=== PATIENT | female | born 1955 | race Caucasian/White ===

== ENCOUNTER 2023-07-27 16:14 | Emergency (ER) | payer MEDICARE, SELFPAY ==
[2023-07-27 16:21] VITALS: BP 135/80; PULSE 70; TEMP 36.7; O2SAT 96; BMI 25.1
--- NOTE | 2023-07-27 16:25 | XR_ITS ---
The [address] [address] Patient Name: BRIDGER GUEVARA MRN: [id number] date: 1955 Sex: F Assigned Patient Location: ED.MAIN Current Patient Location: ED.MAIN Accession/Order Number: [id number] Exam Date: 07/27/2023 16:55 Report Date: 07/27/2023 17:22 At the request of: NINA FROST Procedure: XR wrist LT min 3V EXAM: XR wrist LT min 3V HISTORY: fall, pain COMPARISON: None. TECHNIQUE: 3 views of the left wrist. FINDINGS: Bones: No acute fracture or aggressive appearing bony lesion. Joints: Normal alignment. No significant osteoarthritic change. Soft tissues: Unremarkable. XR/XR wrist LT min 3V IMPRESSION: No evidence of fracture. Electronically authenticated by: IVANIA HERRERA Date: 07/27/2023 17:22
--- NOTE | 2023-07-27 16:25 | ED.UPPEXIN1 ---
HPI HPI - Extremity Injury (Upper) General Chief Complaint: Extremity Injury, Upper Stated Complaint: Fall Upper Injury Time Seen by Provider: 07/27/23 16:17 Source: patient Mode of arrival: walk-in Limitations: no limitations History of Present Illness HPI narrative: 68-year-old female presents for left wrist pain. She fell yesterday. She sustained no other significant injury. She did not hit her head. She points to the wrist to indicate area of pain. Her elbow and fingers do not hurt. The pain is moderate and worse when she moves it and it is a bit swollen so she came in to get checked. Related Data Allergies Allergy/AdvReac Type Severity Reaction Status Date / Time omeprazole [From Prilosec] Allergy Mild nausea Verified 07/27/23 16:26 iv constrast Allergy Severe Anaphylaxis Uncoded 07/27/23 16:26 Opioid HPI Opioid Management Most Recent Pain and Opioid Data: No Data to Display Review of Systems ROS Narrative A ten point review of systems is negative except as noted above. Exam Narrative Exam Narrative: Nurses note and vital signs reviewed and patient is not hypoxic. General: The patient appears well and in no apparent distress. Patient is resting comfortably on cart. Skin: Warm, dry, no pallor noted. There is no rash noted. Head: Normocephalic, atraumatic Eye: Normal conjunctiva, no drainage Ears, Nose, Mouth, and Throat: oral mucosa is moist. Nares patent. Cardiovascular: Regular Rate and Rhythm Respiratory: Patient is in no distress, no accessory muscle use Back: non-tender GI: Soft and nontender Musculoskeletal: The left wrist is mildly swollen. Skin intact. Fingers have full range of motion in the left elbow is nontender. Neurological: A&O, normal speech Psychiatric: Cooperative Constitutional Vital Signs, click to edit/add: Last Vital Signs Temp 98.0 F 07/27/23 16:21 Pulse 70 07/27/23 16:21 Resp 18 07/27/23 16:21 BP 135/80 07/27/23 16:21 Pulse Ox 96 07/27/23 16:21 O2 Del Method Room Air 07/27/23 16:21 Course Vital Signs Vital signs: Vital Signs Temperature 98.0 F 07/27/23 16:21 Pulse Rate 70 07/27/23 16:21 Respiratory Rate 18 07/27/23 16:21 Blood Pressure 135/80 07/27/23 16:21 Pulse Oximetry 96 07/27/23 16:21 Oxygen Delivery Method Room Air 07/27/23 16:21 Temperature 98.0 F 07/27/23 16:21 Pulse Rate 70 07/27/23 16:21 Respiratory Rate 18 07/27/23 16:21 Blood Pressure 135/80 07/27/23 16:21 Pulse Oximetry 96 07/27/23 16:21 Oxygen Delivery Method Room Air 07/27/23 16:21 MDM - Extremity Injury (Upper) MDM Narrative Medical decision making narrative: X-rays show no acute findings. She has a splint that she will continue to use and was recommended ice and ibuprofen. Treatment diagnosis and follow-up were discussed with the patient. Differential Diagnosis Differential diagnosis: Likely sprain and strain of wrist and fracture of wrist Imaging Data Wrist x-ray: Radiologist's impression: ITS Impressions Wrist X-Ray 07/27/23 16:25 IMPRESSION: No evidence of fracture. Electronically authenticated by: IVANIA HERRERA Date: 07/27/2023 17:22 Discharge Plan Discharge Stand Alone Forms: Portal Instructions Chief Complaint: Extremity Injury, Upper Clinical Impression: Left wrist sprain Patient Disposition: Home, Self-Care Time of Disposition Decision: 17:35 Condition: Good Mode of Transportation: Private Vehicle Print Language: [place] Instructions: Wrist Sprain (ED) Referrals: DEMARCUS TROTTER [Primary Care Provider] - 1 week
== END 2023-07-27 17:46 | disposition home or self-care (01) ==
PROVIDERS: Emergency Provider Emergency Medicine; PCP Family Medicine
DX: S63.502A Unspecified sprain of left wrist, initial encounter (principal); W19.XXXA Unspecified fall, initial encounter
CPT/HCPCS: 73110; 99283

== ENCOUNTER 2023-12-17 12:26 | Emergency (ER) | payer MEDICARE, SELFPAY ==
[2023-12-17 12:29] VITALS: BP 117/72; PULSE 63; TEMP 36.5; O2SAT 98; BMI 23.4
--- OUTSIDE RECORDS SUMMARY | 2023-12-17 12:32 | XMS_ITS | CCD ---
Author Organization [facility] Inform ion Partnership [facility] Care Team Providers Care Textile Conversion Manager Name Role Phone Kamila Trotter MD Primary Care Provider FATOU MARRERO Referring Unavailable FATOU MARRERO Attending Unavailable KAMILA TROTTER Referring Unavailable SHA DE LEON Attending Unavailable KAMILA TROTTER Referring Unavailable KAMILA TROTTER Attending Unavailable FATOU MARRERO Attending Unavailable KAMILA TROTTER Referring Unavailable KAMILA TROTTER Referring Unavailable KAMILA TROTTER Attending Unavailable MICHOACANO NUNEZ Attending Unavailable Kamila Trotter Primary Care Provider [phone] Allergies Allergy Classification Reported Allergen(s) Allergy Type Date of Onset Reaction(s) Facility (1 source) atorvastatin Drug Allergy 3 Other [facility] Work Phone: (1 source) Omeprazole Drug Allergy 3 Unknown [facility] (1 source) Iodinated Contrast Media Drug Intolerance 2 Anaphylaxis [facility] Medications Current Medications Medication Drug Class(es) Dates Sig (Normalized) Sig (Original) bacillus coagulans [id number] unt / inulin 250 mg oral capsule (1 source) Bacillus Coagulans-Inulin (Probiotic) 1-250 BILLION-MG capsule Probiotic 0 Active biotin 1 mg oral capsule (1 source) biotin 1 MG caps ule Take by mouth. 0 Active cranberry preparation 405 mg oral capsule (1 source) Non-Standardized Food Allergenic Extract, Non-Standardized Plant Allergenic Extract take 1 capsule by mouth every twelve hours Cranberry 405 MG capsule 1 capsule every 12 (twelve) hours. 0 Active Echinacea 80 MG capsule (1 source) Echinacea 80 MG capsule Orally 0 Active estrogens, conjugated (custodial) 0.625 mg oral tablet (2 sources) Estrogen Start: 09-14-2022 End: 09-14-2023 take 1 tablet by mouth once daily in the morning estrogens, conjugated, (Premarin) 0.625 MG tablet Indications: H/O hysterectomy for benign disease Take 1 tablet (0.625 mg) by mouth in the morning. Take daily for 21 days then do not take for 7 days.. 90 tablet 3 09/14/2022 09/14/2023 Active ESTROGENS, CONJU GATED (PREMARIN ORAL) Take by mouth. Active fexofenadine hydrochloride 180 mg oral tablet (2 sources) Histamine-1 Receptor Antagonist Start: 12-05-2014 take 1 tablet by mouth once daily fexofenadine (Ashanti) 180 MG tablet Indications: Rhinitis, unspecified type TAKE 1 TABLET BY MOUTH EVERY DAY 90 tablet 2 02/17/2023 Active fluticasone propionate 0.05 mg/actuat metered dose nasal spray (1 source) Corticosteroid Start: 03-27-2023 take 1 spray(s) nasal route in the morning fluticasone (Flonase) 50 MCG/ACT nasal spray Indications: Rhinitis, unspecified type SPRAY 1 SPRAY INTO EACH NOSTRIL IN THE MORNING. SHAKE GENTLY AND PRIME PUMP BEFORE USE 48 mL 1 03/27/2023 Active 10 ml lidocaine hydrochloride 10 mg/ml injection (1 source) Antiarrhythmic, Amide Local Anesthetic Start: 02-16-2023 lidocaine (Xylocaine) 1 % injection 30 mg Multiple Vitamin (MULTIVITAMIN ADULT PO) (1 source) Multiple Vitamin (MULTIVITAMIN ADULT PO) Multivitamin 0 Active nitroglycerin 0.4 mg sublingual tablet (1 source) Nitrate Vasodilator Start: 11-26-2021 nitroglycerin (Nitrostat) 0.[address] 1 TABLET UNDER TONGUE EVERY 5 MINS, UP TO 3 DOSES NEEDED FOR CHEST PAIN 0 11/26/2021 Active pantoprazole 20 mg delayed release oral tablet (2 sources) Proton Pump Inhibitor Start: 04-18-2023 take 1 tablet by mouth once daily pantoprazole (ProtoNix) 20 MG EC tablet Indications: Gastroesophageal reflux disease without esophagitis TAKE 1 TABLET BY MOUTH EVERY DAY 90 tablet 0 04/18/2023 Active Start: 01-10-2023 End: 04-18-2023 take 1 tablet by mouth once daily pantoprazole (ProtoNix) 20 MG EC tablet Indications: Gastroesophageal reflux disease without esophagitis TAKE 1 TABLET BY MOUTH EVERY DAY 90 tablet 0 01/10/2023 04/18/2023 Discontinued Potassium (1 source) Potassium 75 MG tablet 1 (one) time each day at the same time. 0 Active 1 ml triamcinolone acetonide 40 mg/ml prefilled syringe (1 source) Corticosteroid Start: 10-20-2022 triamcinolone acetonide (Kenalog-40) injection 40 mg Problems Active Problems Problem Classification Problem Date Documented Date Episodic/Chronic Esophageal disorders (2 sources) Gastroesophageal reflux disease without esophagitis; Translations: [Gastro-esophageal reflux disease without esophagitis] Onset: 09-13-2022 04-17-2023 Chronic Other nervous system disorders (1 source) Difficulty walking; Translations: [Difficulty in walking, not elsewhere classified] Onset: 09-13-2022 09-13-2022 Chronic Other non-traumatic joint disorders (1 source) Arthralgia of the ankle and/or foot; Translations: [Pain in right ankle and joints of right foot] 09-29-2020 Episodic Other upper respiratory disease (1 source) Seasonal allergic rhinitis; Translations: [Other seasonal allergic rhinitis] Onset: 09-13-2022 09-13-2022 Chronic Past or Other Problems Problem Classification Problem Date Documented Da te Episodic/Chronic Conditions associated with dizziness or vertigo (2 sources) Vertigo; Translations: [Dizziness and giddiness] Onset: 09-13-2022 09-13-2022 Episodic Other bone disease and musculoskeletal deformities (1 source) Osteopenia; Translations: [Other specified disorders of bone density and structure, unspecified site] Onset: 09-13-2022 09-13-2022 Episodic Other ear and sense organ disorders (1 source) Hearing loss; Translations: [Unspecified hearing loss, unspecified ear] Onset: 09-13-2022 Resolved: 10-20-2022 10-20-2022 Chronic Other gastrointestinal disorders (1 source) Constipation; Translations: [Constipation, unspecified] Onset: 09-13-2022 09-13-2022 Episodic Other non-epithelial cancer of skin (1 source) History of malignant neoplasm of skin; Translations: [Personal history of other malignant neoplasm of skin] Onset: 06-19-2017 10-12-2022 Episodic Other screening for suspected conditions (not mental disorders or infectious disease) (1 source) Mammography abnormal; Translations: [Other abnormal and inconclusive findings on diagnostic imaging of breast] Onset: 09-13-2022 09-13-2022 Episodic Residual codes; unclassified (1 source) History of hysterectomy for benign disease; Translations: [Acquired absence of both cervix and uterus] Onset: 09-13-2022 09-13-2022 Episodic Results Test Name Value Interpretation Reference Range Facility CT SOFT TISSUE NECK WO IV CO NTRASTon 11-02-2023 CT SOFT TISSUE NECK WO IV CONTRAST Title of exam: CT - CT NECK WITHOUT CONTRAST Reason for exam: Neck mass Comparison: Ultrasound October 16, 2023. Sagittal, axial, coronal thin cuts of the neck obtained. Contrast not administered limiting evaluation of the soft tissues and vascular structures. The base of the brain is without abnormality. The visualized paranasal sinuses and mastoid air cells are without abnormality. The temporomandibular joints are normally located. The parapharyngeal fat pads are nondisplaced. Prevertebral soft tissues are normal in thickness. Thyroid gland not enlarged. Lung apices without abnormality. The airway is nondisplaced. Calcification adjacent to the thyroid cartilage on the right likely represents a small calcified thyroid nodule. Scattered subcentimeter lymph nodes are present throughout the neck bilaterally. No suspicious features. Atherosclerosis of the carotids. The major salivary glands are intact. Cervical spondylosis present. A radiopaque marker denotes the area of this patients symptoms overlying the right side of the face just inferior to the parotid gland. There is a relatively homogeneous low density fatty lesion measuring approximately 2.6 x 1.2 x 3.18 cm. -130 Hounsfield units. The mass does exert mass effect on the sternocleidomastoid muscle and adjacent soft tissues including the parotid gland. It does appear separate from these structures however. IMPRESSION: 1. The palpable finding over the right face is consistent with a lipomatous lesion. Statistically a lipoma. However there is mass effect on adjacent structures and insinuation between tissue planes. Surgical consultation recommended. 2. Atherosclerosis. Dictated on: 11/03/2023 10:25 AM This report has been electronically signed and approved by the interpreting Radiologist. This report is generated using voice recognition reporting (Runteq). On occasion, [employer] erroneously drops words from the report or replaces the spoken word with a similar sounding word. Please call with any questions/concerns regarding the report. Electronically Signed Franklin Mendez II, M.D. 2023-11-03 10:30:46 Normal Not Available Comment on above: Order Comment: CT S/ T Neck WO at [facility]. Please call patient to schedule. BI MAMMOGRAM SCREENING TOMOS YNTHESIS BILATERALon 10-16-2023 BI MAMMOGRAM SCREENING TOMOSYNTHESIS BILATERAL This is a summary report. The complete report is available in the patient's medical record. If you cannot access the medical record, please contact the sending organization for a detailed fax or copy. EXAMINATION: BI MAMMOGRAM SCREENING TOMOSYNTHESIS BILATERAL CLINICAL HISTORY:screening COMPARISON: September 23, 2022 . RESULT: Density: There are scattered areas of fibroglandular density There is no suspicious mass, asymmetry, architectural distortion, or calcification. Typically benign calcifications. Overall appearance stable. IMPRESSION: BIRADS 2 - Benign Follow-up: Routine Screening Mamm Board Certified Radiologists. Accredited by the ACR and FDA. MAMMOGRAPHY IS VERY IMPORTANT TO YOUR HEALTH. THE [place] [employer] GUIDELINES RECOMMEND THAT WOMEN 40 YEARS OF AGE AND OLDER SHOULD HAVE A MAMMOGRAM EVERY YEAR. A REMINDER LETTER WILL BE SENT AT THE APPROPRIATE TIME. THIS FACILITY UTILIZES A REMINDER SYSTEM TO ENSURE ALL PATIENTS RECEIVE REMINDER NOTIFICATIONS AT THE APPROPRIATE TIME BASED ON THE RECOMMENDATIONS OF THIS EXAM. THIS INCLUDES REMINDERS FOR ROUTINE SCREENING MAMMOGRAMS, DIAGNOSTIC MAMMOGRAMS IN WHICH THE PATIENT IS ASKED TO RETURN FOR ADDITIONAL VIEWS, OR OTHER BREAST IMAGING INTERVENTIONS WHEN APPROPRIATE. THE PATIENT WILL BE PLACED IN THE APPROPRIATE REMINDER SYSTEM INCLUDING A REMINDER AT THE APPROPRIATE TIME FOR ANY PENDING ADDITIONAL VIEWS. TRANSCRIBED BY: ELECTRONICALLY SIGNED BY: Pillo Hanna MD Normal Not Available CT LUNG SCREENING LOW DOSEon 10-16-2023 CT LUNG SCREENING LOW DOSE This is a summary report. The complete report is available in the patient's medical record. If you cannot access the medical record, please contact the sending organization for a detailed fax or copy. LOW DOSE CT IMAGING OF THE CHEST WITHOUT INTRAVENOUS CONTRAST MEDIUM. HISTORY: Tobacco use. TECHNICAL FACTORS: Without IV contrast axial helical 1.25mm slice thickness low dose images of the chest performed for lung cancer screening. FINDINGS: No suspicious lung nodule, mass, or parenchymal consolidation. Non-aggressive biapical scarring. Left upper lobe subcentimeter densely calcified granuloma. No significant mediastinal or hilar lymphadenopathy, pleural or pericardial effusion. IMPRESSION: Lung Rads: LUNGRADS 2 - Benign Follow-up Recommendation: LDCT 1 Year Lung Rads categories Category 0: Incomplete Additional Imaging Categories 1 & 2: Negative/Benign Continue annual screening Category 3: Probable benign 6 month f/u CT Chest wo Category 3s: Clinically significant or potentially clinically significant findings Category 4A/B Suspicious 4A: [address] Chest wo; PET/CT when > 8mm solid nodule component exists 4B: Chest w/ contrast; PET/CT and/or biopsy All CT scans at this facility use dose modulation, iterative reconstruction, and/or weight based dosing when appropriate to reduce radiation dose to as low as reasonably achievable. TRANSCRIBED BY: ELECTRONICALLY SIGNED BY: Pillo Hanna MD Normal Not Available US NECKon 10-16-2023 US NECK EXAM: Soft Tissue Ne ck Ultrasound. REASON FOR EXAM: Lymphadenopathy. COMPARISON: None TECHNIQUE: Longitudinal and transverse grayscale, color Doppler images of the neck obtained. FINDINGS: The area of the patients lump demonstrates a relatively homogeneous, wider than tall mass measuring 2.7 x 2.0 x 1.1 cm. No shadowing calculi, posterior acoustic enhancement or shadowing. The lesion does not cross tissue planes. Separate from the parotid gland. Adjacent to the mass there is a reniform 0.5 x 0.3 x 0.7 mm nodule with a hyperechoic hilum. The cortex is not thickened. On the left side for comparison there is a small reniform 0.7 x 0.8 x 0.4 mm nodule with an echogenic hilum. The fullness on the right is asymmetric. IMPRESSION: 1. The palpable finding just inferior to the right ear corresponds to a solid lesion without hypervascularity. CT or MRI of the face with IV contrast is recommended. 2. Bilateral subcentimeter nonenlarged cervical lymph nodes are present. *This report is generated using voice recognition reporting (Spreecast). On occasion Ruzukucribe erroneously drops words from the report or replaces the spoken word with similar sounding words. Please call with any questions/concerns regarding this report.* Dictated and transcribed 10/16/23/dpd This report has been electronically signed and approved by the interpreting radiologist. Electronically Signed Franklin Mendez II, M.D. 2023-10-16 09:44:29 Normal Not Available XR Bone Density (DEXA)on XR Bone Density (DEXA) EXAM: DUAL FEMUR BONE DENSITY FINDINGS: RegionBMDYoung-AdultAge -Matched Total(g/cm2)(%)T-Score( %)Z-Score Mean0.84296 -1.2106 0.4 Impression: The mean BMD and corresponding T-score indicated above indicate Low Bone Mass (Osteopenia) and places the patient at a mild to moderate increased risk for fracture. There may be a future risk of developing osteoporosis. Comment: The T-score is the primary focus of the interpretation of a patient???s bone mineral density measurement. The T-score is the number of standard deviations an individual is above or below the mean value for a young female having normal bone mass. The WHO defines osteoporosis based on the T-score value??? +1.0 to ???0.9 : Normal bone mass -1.0 to -2.5 : Osteopenia and thus may be at future risk of fracture -2.6 to ???5 : Osteoporosis and ???at significantly increased risk of fracture??? A Z-Score of -2.0 or lower is defined as ???below the expected range for age??? and a Z-Score above -2.0 is ???within the expected range for age.??? Osteoporosis cannot be diagnosed in men under the age of 50 on the basis of BMD alone. Per 2019 ISCD guidelines, Z-Scores (not T-Scores) are preferred when reporting data in premenopausal females and males less than 50 years of age. EXAM: AP LUMBAR BONE DENSITY FINDINGS: [facility] -[facility] Total(g/cm2)(%)T-Score( %)Z-Score L1-L40.43379-3.26522.0 Impression: The mean BMD and corresponding T-score indicated above indicate Normal Bone Mass and places the patient no significant risk for fracture. This information can serve as a baseline with which to compare future studies. Comment: The T-score is the primary focus of the interpretation of a patient???s bone mineral density measurement. The T-score is the number of standard deviations an individual is above or below the mean value for a young female having normal bone mass. The WHO defines osteoporosis based on the T-score value??? +1.0 to ???0.9 : Normal bone mass -1.0 to -2.5 : Osteopenia and thus may be at future risk of fracture -2.6 to ???5 : Osteoporosis and ???at significantly increased risk of fracture??? A Z-Score of -2.0 or lower is defined as ???below the expected range for age??? and a Z-Score above -2.0 is ???within the expected range for age.??? Osteoporosis cannot be diagnosed in men under the age of 50 on the basis of BMD alone. Per 2019 ISCD guidelines, Z-Scores (not T-Scores) are preferred when reporting data in premenopausal females and males less than 50 years of age. Findings are borderline osteopenia. Report reported and signed by Pillo Hanna on 09/27/[address] [facility] Machine Stuffer Automatic CNOVon 04-26-2021 CNOV Office Visit (DERMWH ) DORYS GUEVARA ([id number]) 1955 F Date Time Provider Department 04/26/21 11:40 AM VIRAL STONER DERMWH During your visit today, we recorded the following information about you: Viral Stinson MD 04/26/2021 1:38 PM Signed LV 2014 CC: rash HPI: 65 year old F with h/o pruritic rash in 2014, and prior to that in 2007. Started a t the time on zyrtec and zantac with good results. Zantac then was discontinued and patient eventually ran out of pills. Her pruritus recurred despite still taking Ashanti. Involving posterior scalp, posterior neck and also had a rash on L breast that has cleared up. Pruritus of scalp remains. Flare 4 months ago. Tried famotidine PO given by PCP which actually made pruritus worse. PAST MEDICAL HISTORY Diagnosis Date - GERD (gastroesophageal reflux disease) - Rash ROS: No fatigue or weight loss. No SOB, chest pain, abdominal pain. PE: AAANDO x 3, well appearing. The examination of the scalp, face, eyelids, lips, neck, chest, abdomen, digits and nails, both upper extremities was done and was normal except as listed below: - occipital scalp with small pink patches and macules, no papules. - negative dermatographism. Assessment/Plan: Dorys was seen today for derm problem. Diagnoses and all orders for this visit: Pruritus of skin - cont with Ashanti as is - start cetirizine (ZYRTEC) 10 mg tablet; Take 1 tablet by mouth once daily. - Clobetasol Propionate (TEMOVATE) 0.05 % external solution; apply to itchy scalp areas every other day as needed in reserve famotidine along with protonix, latter currently taking. return to clinic as needed, call me in 2 weeks if not better I spent a total of 20 minutes on the date of the service which included preparing to see the patient, [id number] patient care, completing clinical documentation, obtaining and/or reviewing separately obtained history, performing a medically appropriate examination, counseling and educating the patient/family/caregive r and ordering medications, tests, or procedures. Viral Stinson MD Referring Provider: SELF [[id number]] Allergies As of Date: 04/26/2021 (No Known Allergies) Date Reviewed: 04/26/2021 Reviewed by: Viral Good MD - Fully Assessed Reason for Visit: Derm Problem [33] Cmt: rash on posterior neck and scalp Primary Visit Diagnosis:Pruritus of skin [L29.9] Order(s):cetirizine (ZYRTEC) 10 mg tabletTake 1 tablet by mouth once daily.Disp: 30 tabletRfl: 4 Clobetasol Propionate (TEMOVATE) 0.05 % external solutionapply to itchy scalp areas every other day as neededDisp: 1 mLRfl: 3 Prescriptions as of 04/26/2021 - pantoprazole DR (PROTONIX) 40 mg tablet - cetirizine (ZYRTEC) 10 mg tablet Take 1 tablet by mouth once daily. - Clobetasol Propionate (TEMOVATE) 0.05 % external solution apply to itchy scalp areas every other day as needed - ESTROGENS, CONJUGATED (PREMARIN ORAL) Take by mouth. - fexofenadine (ASHANTI) 180 mg tablet Take 1 tablet by mouth once daily. Problem List As Of Date: 04/26/2021 (None) Prescriptions ordered this encounter Disp Refills Start End CETIRIZINE 10 MG TABLET 30 t* 4 04/26/2021 Route: ORAL Sig: Take 1 tablet by mouth once daily. CLOBETASOL 0.05 % SCALP SOLUTION 1 mL 3 04/26/2021 Sig: apply to itchy scalp areas every other day as needed Medications Discontinued During This Encounter Prescriptions - Clobetasol Propionate 0.05 % TOPICAL external solution (Discontinued) Reported on 05/07/2020 - clobetasol 0.05 % TOPICAL cream (Discontinued) Reported on 05/07/2020 - famotidine (PEPCID AC MAXIMUM STRENGTH) 20 mg tablet (Discontinued) Take 20 mg by mouth once daily. Encounter Status:Closed by VIRAL STINSON on 04/26/21 Normal [facility] Diagnostic Mammogram, Unilat eral left w/Carlos (3D)on 03-12-2021 Diagnostic Mammogram, Unilateral left w/Carlos (3D) COMPARISON: Dating back to March 10, 2021. TECHNIQUE: 2D and 3D Tomosynthesis of the left breasts was performed. FINDINGS: On these additional views no underlying nodule, mass or suspicious calcifications are present. IMPRESSION: BIRADS 3 - PROBABLY BENIGN FINDING - SHORT INTERVAL FOLLOW-UP SUGGESTED, recommend follow up left breast mammogram in 6 months. Board Certified Radiologist. Accredited by the ACR and FDA. MAMMOGRAPHY IS VERY IMPORTANT TO YOUR HEALTH. THE CURRENT [place] [employer] OF [employer] AND [employer]WORK GUIDELINES RECOMMENDS ANNUAL MAMMOGRAPHY BEGINNING AT AGE 40 THIS FACILITY USES A REMINDER SYSTEM TO ENSURE ALL PATIENTS RECEIVE REMINDER NOTIFICATIONS AT THE APPROPRIATE TIME BASED ON THE RECOMMENDATIONS OF THIS EXAM. Report reported and signed by Pillo Hanna on 03/12/2021 1504 Normal [facility] Comprehensive Metabolic Pane sienna 03-10-2021 Albumin [Mass/Vol] 4.3 g/dL Normal 3.6-5.1 Elyse [facility] [place] [facility] Automatic Comment on above: Performed By: #### L IPD, CMP #### [facility] [address] [place], [place] [id number] Albumin/Globulin [Mass ratio] 2.5 {ratio} Normal 1.0-2.5 [facility] Specialist Comment on above: Performed By: #### L IPD, CMP #### [facility] [address] [place], [place] [id number] ALP [Catalytic activity/Vol] 80 U/L Normal 35-119 [facility] Specialist Comment on above: Performed By: #### L IPD, CMP #### [facility] [address] [place], [place] [id number] ALT [Catalytic activity/Vol] 14 U/L Normal 6-33 [facility] Specialist Comment on above: Result Comment: 02/03 Female reference range changed. Performed By: #### L IPD, CMP #### [facility] [address] [place], [place] [id number] Anion gap [Moles/Vol] 16 mmol/L Normal 12-20 [facility] Comment on above: Result Comment: Effe ctive 03/11/2019 reference range changed. Performed By: #### L IPD, CMP #### [facility] [address] [place], [place] [id number] AST [Catalytic activity/Vol] 17 U/L Normal 9-34 [facility] Specialist Comment on above: Performed By: #### L IPD, CMP #### [facility] [address] [id number] BUN/CREA 24 Ratio High 6-22 [facility] Specialist Comment on above: Performed By: #### L IPD, CMP #### [facility] [address] [place], [place] [id number] Calcium [Mass/Vol] 9.9 mg/dL Normal 8.6-10.2 [facility] Comment on above: Performed By: #### L IPD, CMP #### [facility] [address] [place], [place] [id number] Chloride [Moles/Vol] 103 mmol/L Normal 98-107 [facility] Comment on above: Performed By: #### L IPD, CMP #### [facility] [address] [place], [place] [id number] CO2 [Moles/Vol] 24 mmol/L Normal 20-31 [facility] Specialist Comment on above: Performed By: #### L IPD, CMP #### [facility] [address] [place], [place] [id number] Creatinine [Mass/Vol] 0.8 mg/dL Normal 0.6-1.4 [facility] Specialist Comment on above: Performed By: #### L IPD, CMP #### [facility] [address] [place], [place] [id number] eGFRAA 89 mL/min/1.73m2 Normal >60 [facility] Specialist Comment on above: Performed By: #### L IPD, CMP #### [facility] [address] [place], [place] [id number] eGFRNAA 73 mL/min/1.73m2 Normal >60 [facility] Specialist Comment on above: Performed By: #### L IPD, CMP #### [facility] [address] [place], [place] [id number] Globulin (S) [Mass/Vol] 1.7 g/dL Low 1.9-3.7 [facility] Machine St[facility] Automatic Comment on above: Performed By: #### L IPD, CMP #### [facility] [address] [place], [place] [id number] Glucose [Mass/Vol] 89 mg/dL Normal 65-99 [facility] Machine Stuffer Automatic Comment on above: Result Comment: For FASTING Glucose --- ADA reference ranges: Normal 65-99 mg/dl Prediabetes 100-125 Diabetes >/= 126 Performed By: #### L IPD, CMP #### [facility] [address] [place], [place] [id number] Potassium [Moles/Vol] 4.6 mmol/L Normal 3.5-5.5 [facility] Machine Stuffer Automatic Comment on above: Performed By: #### L IPD, CMP #### [facility] [address] [place], [place] [id number] Protein [Mass/Vol] 6.0 g/dL Low 6.1-8.1 [facility] Machine Stuffer Automatic Comment on above: Performed By: #### L IPD, CMP #### [facility] [address] [place], [place] [id number] Sodium [Moles/Vol] 138 mmol/L Normal 135-146 [facility] Comment on above: Performed By: #### L IPD, CMP #### [facility] [address] [place], [place] [id number] TBIL <0.3 Normal [facility] Specialist Comment on above: Performed By: #### L IPD, CMP #### [facility] [address] [place], [place] [id number] Urea nitrogen [Mass/Vol] 19 mg/dL Normal 7-25 [facility] Specialist Comment on above: Performed By: #### L IPD, CMP #### [facility] [address] [place], [place] [id number] Lipid Panelon 03-10-2021 Cholesterol [Mass/Vol] 224 mg/dL High 125-200 [facility] Comment on above: Result Comment: Low risk < 200mg/dL Borderline risk 201-239 mg/dl High risk > or equal to 240 Performed By: #### L IPD, CMP #### [facility] [address] [place], [place] [id number] Cholesterol in HDL [Mass/Vol] 91 mg/dL Normal >40 [facility] Specialist Comment on above: Result Comment: High Cardiovascular Risk HDL <40 mg/dL Low Cardiovascular Risk HDL > or equal to 60 mg/dl Performed By: #### L IPD, CMP #### [facility] [address] [place], [place] [id number] Cholesterol in LDL [Mass/Vol] 120 mg/dL Normal [facility] Specialist Comment on above: Result Comment: LDL ATP III CLASSIFICATION LDL less than 100 mg/dl Optimal LDL 100-129 mg/dl Near or above optimal LDL 130-159 Borderline high LDL 160-189 High LDL greater than 189 mg/dl Very High Performed By: #### L IPD, CMP #### [facility] [address] [place], [place] [id number] Cholesterol in VLDL [Mass/Vol] 13 mg/dL Normal [facility] Specialist Comment on above: Performed By: #### L IPD, CMP #### [facility] [address] [place], [place] [id number] Cholesterol.total/Chol esterol in HDL [Mass ratio] 2 {ratio} Normal [facility] Specialist Comment on above: Performed By: #### L IPD, CMP #### [facility] [address] [place], [place] [id number] Triglyceride [Mass/Vol] 67 mg/dL Normal 30-150 [facility] Machine Stuffer Automatic Comment on above: Result Comment: TRIG ATPIII CLASSIFICATIONS TRIG less than 150 mg/dl Normal TRIG 150-199 mg/dl Borderline High TRIG 200-500 mg/dl High TRIG greather than 500 mg/dl Very High Performed By: #### L IPD, CMP #### [facility] [address] [place], [place] [id number] SCREENING MAMMOGRAM W/CARLOS, BILATERAL*on 03-10-2021 SCREENING MAMMOGRAM W/CARLOS, BILATERAL* COMPARISON: Dating back to January 14, 2019 and September 01, 2017 TECHNIQUE: 2D and 3D Tomosynthesis of the right and left breasts was performed. FINDINGS: Breast composition demonstrates scattered fibroglandular densities. Unremarkable, stable right breast. Slightly more conspicuous left upper outer breast 8 x 8 mm focal asymmetry 6.0 cm from the nipple (BTO LMLO Image 39 of 70, BTO LCC Image 33 of 65). No significant axillary lymphadenopathy. IMPRESSION: BI RADS 0 : ADDITIONAL IMAGING EVALUATION NEEDED. Recommend spot compression (left upper outer breast), CC/MLO projections (mid depth) and ultrasound. Board Certified Radiologist. Accredited by the ACR and FDA. MAMMOGRAPHY IS VERY IMPORTANT TO YOUR HEALTH. THE CURRENT [place] [employer] AND [employer] GUIDELINES RECOMMENDS ANNUAL MAMMOGRAPHY BEGINNING AT AGE 40. THIS FACILITY USES A REMINDER SYSTEM TO ENSURE ALL PATIENTS RECEIVE REMINDER NOTIFICATIONS AT THE APPROPRIATE TIME BASED ON THE RECOMMENDATIONS OF THIS EXAM. Asymmetry: Visible on only one projection. Asymmetries that sleeve turner to be summation artifact are benign (BI-RADS 2). The BI-RADS [place] offers guidance regarding the other categories of asymmetries. Focal Asymmetry: Visible on two projections, involves less than one quadrant, lacks convex-outwards borders or is interspersed with fat. A solitary focal asymmetry (without architectural distortion, calcification, or underlying mass identified on the diagnostic mammography and ultrasound) is assessed as BI-RADS 3 (likely benign). Developing Asymmetry: Focal asymmetry that is new, larger, or more conspicuous than on prior examinations. A developing asymmetry, unless shown to be characteristically benign such as a cyst or ultrasound, is assessed BI-RADS 4 (suspicious). An exception would be if there is a clear benign explanation, such as recent surgery, trauma, or infection at that site. Global Asymmetry: Visible on two projections, involves more than one quadrant. Global asymmetry, in the absence of palpable correlate, is assessed BI-RADS 2 (benign). Report reported and signed by Pillo Hanna on 03/10/[address] [facility] Machine Stuffer Automatic CNOVon 11-12-2020 CNOV Office Visit (LOORRM ) DORYS GUEVARA ([id number]) 1955 F Date Time Provider Department 11/12/20 10:20 AM ABBY LAMASKINGWOODDontrell During your visit today, we recorded the following information about you: Abby Lamas DPM 11/12/2020 9:21 PM Signed Department of Orthopedics [facility] Name: Dorys Guevara Date of Service: November 12, 2020 CC: Follow Up and Pain of the Right Foot Subjective: This 65 year old female patient presents to clinic for follow up right foot pain secondary to bone marrow edema. Patient has been in pneumatic walking boot and states she has notice great decreased pain. PAIN EVALUATION 11/12/2020 1027 Pain Level: 0 Pain Location: Foot-Right Duration Amount of Time: 6 Duration Units: Months Frequency: Intermittent Intervention/Comfort measure: Medication;Relaxation cast, boot Comments: Follow up right foot pain/bone edema ROS: Cardiovascular: Negative leg swelling. Negative claudication. Neuro: Negative for numbness, tingling, burning sensations. Negative for frequent falls and balance incoordination Derm: Negative for open sores, slow healing sores. Negative rashes and itching. Musculoskeletal: See HPI I review past medical history and medications listed in epic with patient and indicates no change ALLERGIES No Known Allergies Objective: Pt presents ambulating in Pneumatic Walking Boot General- AAO x 3, NAD, well groomed, pleasant and cooperative. Vasc: Right Pulses: DP: +2/4 , PT: +2/4 CFT is less than 3 seconds bilateral. Skin temperature is warm to cool proximal to distal bilateral. There is decreased 5th metatarsal(s) base edema. Neuro: Light touch intact to all quadrants of bilateral feet/ankles with no apparent sensory deficits Derm: Skin is of normal turgor and texture and without redness or bruising . Ortho: There minimal pain on palpation of the base of 5th metatarsal(s) right foot. There is no pain with passive or resisted ROM x 4 directions right foot. Decreased ankle joint dorsiflexion bilateral. With weightbearing noted cavus foot with varus heel (weightbearing 5th metatarsal(s)) Assessment: (R93.7) Bone marrow edema (primary encounter diagnosis) (M79.671) Pain in right foot (Q66.70) Pes cavus (M21.6X1, M21.6X2) Equinus deformity of both feet Plan: Patient examined and evaluated Intervention: Continue conservative treatment. Can try surgical shoe while on vacation in [place] Rx for custom orthotics from [facility] Follow-up: PRN/4-6 weeks . Written and verbal health teaching given to patient, patient verbalizes understanding and agrees with treatment plan. Pt to call immediately if questions, concerns, pain arise prior to next appt. Electronically Signed: Abby Lamas DPM November 12, 2020 10:42 AM Referring Provider: ABBY LAMAS [[id number]] Allergies As of Date: 11/12/2020 (No Known Allergies) Date Reviewed: 11/12/2020 Reviewed by: Abby Lamas DPM - Fully Assessed Reason for Visit: Follow Up [171] Pain [78] Primary Visit Diagnosis:Bone marrow edema [R93.7] Other Visit Diagnoses:Pain in right foot [M79.671] Pes cavus [Q66.70] Equinus deformity of both feet [M21.6X1, M21.6X2] Order(s):CONSULT TO ORTHOTIC/PROSTHETIC [19990408] Order #: [id number]: 1 Prescriptions as of 11/12/2020 - famotidine (PEPCID AC MAXIMUM STRENGTH) 20 mg tablet Take 20 mg by mouth once daily. - ESTROGENS, CONJUGATED (PREMARIN ORAL) Take by mouth. - fexofenadine (ASHANTI) 180 mg tablet Take 1 tablet by mouth once daily. - Clobetasol Propionate 0.05 % TOPICAL external solution daily-bid prn rash on scalp, do not apply to face or folds, max Mon-Mon; dispense largest - clobetasol 0.05 % TOPICAL cream bid prn rash on body, do not apply to face or folds, max Mon-Mon; dispense largest Problem List As Of Date: 11/12/2020 (None) Disposition: Return in about 3 weeks (around 12/03/2020). Follow-up and Disposition History Recorded Encounter Status:Closed by ABBY LAMAS on 11/12/20 [facility] Isaeblla 10-05-2020 CNPN Telephone (ORTHAL) DORYS GUEVARA ([id number]) 1955 F Date Time Provider Department 10/05/20 ABBY LAMAS TRAY ORTHAL During your visit today, we recorded the following information about you: Amanda Pelayo Ma 10/05/2020 2:25 PM Signed Left a message. Dr Lamas is not at the [place] office on Monday. She can come into the [place] office to have the cast CHANGED but another cast will need to be applied. She should follow up with Dr Lamas the week of Oct 26 to have cast removed and see DR Lamas. Allergies As of Date: 10/05/2020 (No Known Allergies) Date Reviewed: 10/03/2020 Reviewed by: Aniket Slater III, Medic - Fully Assessed Reason for Visit: Appointment clarification [Other] Prescriptions as of 10/05/2020 - famotidine (PEPCID AC MAXIMUM STRENGTH) 20 mg tablet Take 20 mg by mouth once daily. - ESTROGENS, CONJUGATED (PREMARIN ORAL) Take by mouth. - fexofenadine (ASHANTI) 180 mg tablet Take 1 tablet by mouth once daily. - Clobetasol Propionate 0.05 % TOPICAL external solution daily-bid prn rash on scalp, do not apply to face or folds, max Mon-Mon; dispense largest - clobetasol 0.05 % TOPICAL cream bid prn rash on body, do not apply to face or folds, max Mon-Mon; dispense largest Problem List As Of Date: 10/05/2020 (None) Encounter Status:Closed by AMANDA PELAYO MA on 10/05/20 [facility] ED NOTEon 10-03-2020 ED NOTE HNO ID: [id number] Author: Lorene Zamarripa RN Service: ? Author Type: Registered Nurse Type: ED Notes Filed: 10/03/2020 7:43 PM Note Text: Discharge Note The patient was discharged home, the patients skin is warm and dry, and breathing is regular and unlabored. Discharge and follow up instructions given, Pt stable. The patient verbalized an understanding of discharge instructions provided. The patient was instructed to return to the ED if symptoms worsen. Pt has no further questions and/or concerns at this time. [facility] ED NOTE HNO ID: [id number] Author: Vimal Haji, Medic Service: ? Author Type: Editor Continuity And Script and Diabetes Trainer Type: ED Notes Filed: 10/03/2020 7:19 PM Note Text: Removed cast from pts rt leg [facility] ED NOTE HNO ID: [id number] Author: Lorene Zamarripa RN Service: ? Author Type: Registered Nurse Type: ED Notes Filed: 10/03/2020 7:10 PM Note Text: Niles is at bedside removing the patients Cast. [facility] ED NOTE HNO ID: [id number] Author: Aniket Slater III, Medic Service: ? Author Type: Editor Continuity And Script and Diabetes Trainer Type: ED Notes Filed: 10/03/2020 5:59 PM Note Text: Patient presents to the ER for a possible cast removal from the right leg. [facility] ED PROV NOTEon 10-03-2020 ED PROV NOTE HNO ID: [id number] Author: Armando Rudolph PA-C Service: Emergency Medicine Author Type: Physician Gas And Oil Checker Type: ED Provider Notes Filed: 10/03/2020 11:40 PM Note Text: ED Provider Note Patient Name: Dorys Guevara SERVICE DATE: 10/03/20 History Patient presents with: Cast Removal: Right leg 65-year-old female presents to ED requesting cast removal of right LE due to recently appreciated loosening and skin irration anteriorally x2 days. Admits she discussed this with her Orthopedic office loss prevention lead, recommended to go to ED for removal and to use walking boot that patient does have. Admits she was placed in a cast because she had accidentally been noncompliant with walking boot which is recommended for bone marrow edema. PAST MEDICAL HISTORY Diagnosis Date - GERD (gastroesophageal reflux disease) - Rash History reviewed. No pertinent surgical history. No family history on file. Social History Tobacco Use - Smoking status: Former Smoker - Smokeless tobacco: Never Used Substance and Sexual Activity - Alcohol use: Yes - Drug use: Not on file - Sexual activity: Not on file ALLERGIES No Known Allergies Review of Systems Constitutional: Negative for fever. HENT: Negative for rhinorrhea. Respiratory: Negative for shortness of breath. Cardiovascular: Negative for chest pain. Gastrointestinal: Negative for vomiting. Genitourinary: Negative for hematuria. Skin: Negative for color change, pallor, rash and wound. Allergic/Immunologic: Negative for immunocompromised state. Neurological: Negative for facial asymmetry. Psychiatric/Behavioral: Negative for confusion. Physical Exam BP 133/83 Pulse 61 Temp 97.7 Resp 20 Ht 5' 7 (1.70m) Wt 145 lb (65.8kg) SpO2 99% BMI 22.71 kg/(m2). O2 Therapy: Room Air Physical Exam Vitals and nursing note reviewed. Constitutional: Appearance: Normal appearance. HENT: Head: Normocephalic and atraumatic. Mouth/Throat: Pharynx: Oropharynx is clear. Eyes: Conjunctiva/sclera: Conjunctivae normal. Cardiovascular: Rate and Rhythm: Normal rate. Pulses: Normal pulses. Dorsalis pedis pulses are 2+ on the right side and 2+ on the left side. Pulmonary: Effort: Pulmonary effort is normal. Abdominal: General: Abdomen is flat. Musculoskeletal: General: Normal range of motion. Right foot: No foot drop. Left foot: No foot drop. Skin: General: Skin is warm. Capillary Refill: Capillary refill takes less than 2 seconds. Findings: No erythema or wound. Neurological: General: No focal deficit present. Mental Status: She is alert and oriented to person, place, and time. Psychiatric: Mood and Affect: Mood normal. Behavior: Behavior normal. Diagnostic Testing ED Labs Ordered and Reviewed - No data to display Procedures ED Course / Clinical Impression Clinical Impressions as of Oct 04 2339 Cast discomfort Encounter for cast removal MDM / Disposition / Plan Very pleasant and well-appearing 65-year-old female presents to ED requesting cast removal of right LE due to recently appreciated loosening and skin irration anteriorally x2 days. Vital signs stable, afebrile, neurovascular intact. Skin inspected following cast removal. Fortunately, no pressure ulcer or skin changes appreciated. Advised patient to maintain compliance with walking boot as recommended by orthopedist on-call. Patient should call her managing physician on Monday morning to inform them of this change. After discussing likely diagnosis and plan with patient and family members at bedside, they admit they feel comfortable with discharge home and do not have any additional questions at this time. I recommend for them to return to ED with worsening symptoms or new onset symptoms. Disposition The patient was discharged. Counseled patient regarding . As well as the need for follow-up. Discharged home with verbal and written instructions. They were instructed to return as needed for persistent or worsening symptoms or any new concerns. Condition at disposition is stable and improved. SIGNATURE: JENNIFER Perry PA-C 10/03/202339 Normal [facility] No Panel Informationon 09-30 IMPRESSION: Healing fifth metatarsal stress reaction. No new acute findings. Chief Radiologic Technologist: KB Transcribe Date/Time: Sep 29 2020 4:02P Dictated by : KEKE RICHARDS MD This examination was interpreted and the report reviewed and electronically signed by: KEKE RICHARDS MD on Sep 30 2020 7:35AM [facility] DIVISION OF RADIOLOGY No Panel InformationOrdered By: [facility] Provider on 09-30-2020 [facility] XR Ankle - right AP and Late ral and obliqueon 09-30-2020 * * *Final Report* * * DATE OF EXAM: Sep 29 2020 3:40PM JAC 5297 - XR ANKLE 3V AP/LAT/OBL RT / PROCEDURE REASON: Pain in joint involving right ankle and foot * * * * Physician Interpretation * * * * HISTORY: Acute anterior and lateral Right ankle pain, fell over baby gate last week. (accession [id number]), Acute Right dorsal midfoot pain fell of gate last week. (accession [id number]) Pain in joint involving right ankle and foot . TECHNIQUE: XR ANKLE 3V AP/LAT/OBL RT, XR FOOT 3V AP/LAT/OBL RT Laterality: RIGHT Number of different views (projections): 3 COMPARISON: 05/07/2020, 05/25/2020 RESULT: Ankle: No fracture. No dislocation. Well-corticated ossification at the dorsal aspect of the navicular bone consistent with sequela of prior trauma. Additionally, there is a well-corticated ossification posterior to the tibia, also likely sequela of prior trauma there is no soft tissue swelling. Foot: Well-corticated ossification tip of the fifth metatarsal base is unchanged. Subtle callus formation is seen at the base of the fifth metatarsal suggesting healing stress reaction.no additional focal periostitis. Posterior calcaneal spur noted DIVISION OF RADIOLOGY Provider, [facility] - 09/30/2020 * * *Final Report* * * DATE OF EXAM: Sep 29 2020 3:40PM JAC 5297 - XR ANKLE 3V AP/LAT/OBL RT / PROCEDURE REASON: Pain in joint involving right ankle and foot * * * * Physician Interpretation * * * * HISTORY: Acute anterior and lateral Right ankle pain, fell over baby gate last week. (accession [id number]), Acute Right dorsal midfoot pain fell of gate last week. (accession [id number]) Pain in joint involving right ankle and foot . TECHNIQUE: XR ANKLE 3V AP/LAT/OBL RT, XR FOOT 3V AP/LAT/OBL RT Laterality: RIGHT Number of different views (projections): 3 COMPARISON: 05/07/2020, 05/25/2020 RESULT: Ankle: No fracture. No dislocation. Well-corticated ossification at the dorsal aspect of the navicular bone consistent with sequela of prior trauma. Additionally, there is a well-corticated ossification posterior to the tibia, also likely sequela of prior trauma there is no soft tissue swelling. Foot: Well-corticated ossification tip of the fifth metatarsal base is unchanged. Subtle callus formation is seen at the base of the fifth metatarsal suggesting healing stress reaction.no additional focal periostitis. Posterior calcaneal spur noted IMPRESSION IMPRESSION: Healing fifth metatarsal stress reaction. No new acute findings. Chief Radiologic Technologist: PSCB Transcribe Date/Time: Sep 29 2020 4:02P Dictated by : KEKE RICHARDS MD This examination was interpreted and the report reviewed and electronically signed by: KEKE RICHARDS MD on Sep 30 2020 7:35AM EST [facility] XR Foot - right AP and Later al and obliqueon 09-30-2020 * * *Final Report* * * DATE OF EXAM: Sep 29 2020 3:40PM JAC 5337 - XR FOOT 3V AP/LAT/OBL RT / PROCEDURE REASON: Pain in joint involving right ankle and foot * * * * Physician Interpretation * * * * HISTORY: Acute anterior and lateral Right ankle pain, fell over baby gate last week. (accession [id number]), Acute Right dorsal midfoot pain fell of gate last week. (accession [id number]) Pain in joint involving right ankle and foot . TECHNIQUE: XR ANKLE 3V AP/LAT/OBL RT, XR FOOT 3V AP/LAT/OBL RT Laterality: RIGHT Number of different views (projections): 3 COMPARISON: 05/07/2020, 05/25/2020 RESULT: Ankle: No fracture. No dislocation. Well-corticated ossification at the dorsal aspect of the navicular bone consistent with sequela of prior trauma. Additionally, there is a well-corticated ossification posterior to the tibia, also likely sequela of prior trauma there is no soft tissue swelling. Foot: Well-corticated ossification tip of the fifth metatarsal base is unchanged. Subtle callus formation is seen at the base of the fifth metatarsal suggesting healing stress reaction.no additional focal periostitis. Posterior calcaneal spur noted DIVISION OF RADIOLOGY Provider, [facility] - 09/30/2020 * * *Final Report* * * DATE OF EXAM: Sep 29 2020 3:40PM JAC 5337 - XR FOOT 3V AP/LAT/OBL RT / PROCEDURE REASON: Pain in joint involving right ankle and foot * * * * Physician Interpretation * * * * HISTORY: Acute anterior and lateral Right ankle pain, fell over baby gate last week. (accession [id number]), Acute Right dorsal midfoot pain fell of gate last week. (accession [id number]) Pain in joint involving right ankle and foot . TECHNIQUE: XR ANKLE 3V AP/LAT/OBL RT, XR FOOT 3V AP/LAT/OBL RT Laterality: RIGHT Number of different views (projections): 3 COMPARISON: 05/07/2020, 05/25/2020 RESULT: Ankle: No fracture. No dislocation. Well-corticated ossification at the dorsal aspect of the navicular bone consistent with sequela of prior trauma. Additionally, there is a well-corticated ossification posterior to the tibia, also likely sequela of prior trauma there is no soft tissue swelling. Foot: Well-corticated ossification tip of the fifth metatarsal base is unchanged. Subtle callus formation is seen at the base of the fifth metatarsal suggesting healing stress reaction.no additional focal periostitis. Posterior calcaneal spur noted IMPRESSION IMPRESSION: Healing fifth metatarsal stress reaction. No new acute findings. Chief Radiologic Technologist: KB Transcribe Date/Time: Sep 29 2020 4:02P Dictated by : KEKE RICHARDS MD This examination was interpreted and the report reviewed and electronically signed by: KEKE RICHARDS MD on Sep 30 2020 7:35AM EST [facility] CNOVon 09-29-2020 CNOV Office Visit (ORTHAL ) DORYS GUEVARA ([id number]) 1955 F Date Time Provider Department 09/29/20 2:40 PM ABBY LAMAS During your visit today, we recorded the following information about you: Abby Lamas DPM 09/30/2020 9:19 PM Signed SERVICE DATE: September 29, 2020 PCP: Kamila Trotter MD Patient was self-referred. Subjective Patient ID: Dorys is a 65 year old female. Chief Complaint: Patient presents with: Right Foot - Follow Up, Pain, New PAIN EVALUATION 09/29/2020 1513 Pain Level: 8 Pain Location: Foot-Right Description: Aching Duration Amount of Time: 4 Duration Units: Days Frequency: Continuous Intervention/Comfort measure: Relaxation;Cold;Medicat ion Comments: She is following up for bone marrow edema of right foot. On Monday she fell of the doggie gate and now has pain in the right foot and ankle. HPI TREATMENTS PRIOR TO INITIAL CONSULT: Oral NSAIDS Right Bracing: Wears pneumatic walkign boot intermittently. Currently elastic ankle brace Review of Systems Cardiovascular: Negative. Endocrine: Negative for diabetic associated symptoms. Skin: Positive for color change. bruising Neurological: Negative for numbness. Hematological: Negative for blood/clotting disorder. Musculoskeletal: Positive for joint swelling. There is no problem list on file for this patient. PAST MEDICAL HISTORY Diagnosis Date - GERD (gastroesophageal reflux disease) - Rash No past surgical history on file. No family history on file. Social History Tobacco Use - Smoking status: Former Smoker - Smokeless tobacco: Never Used Substance Use Topics - Alcohol use: Yes - Drug use: Not on file ALLERGIES No Known Allergies MEDICATIONS: famotidine (PEPCID AC MAXIMUM STRENGTH) 20 mg tablet Take 20 mg by mouth once daily. ESTROGENS, CONJUGATED (PREMARIN ORAL) Take by mouth. fexofenadine (ASHANTI) 180 mg tablet Take 1 tablet by mouth once daily. Clobetasol Propionate 0.05 % TOPICAL external solution daily-bid prn rash on scalp, do not apply to face or folds, max Mon-Fri; dispense largest clobetasol 0.05 % TOPICAL cream bid prn rash on body, do not apply to face or folds, max Mon-Fri; dispense largest Allergies, medications, past surgical history, family history and past medical history were reviewed per this encounter. Objective Right Ankle Exam Swelling: mild Range of Motion Dorsiflexion: abnormal Inversion: abnormal Tests Anterior drawer: negative Other Sensation: normal Pulse: present Comments: Pain at AITFL and 5th metatarsal(s) base on the right which is also swollen. No pain at ATFL, bifurcate or lateral malleolus. Range of motion is limited by pain. Assessment/Plan ASSESSMENT Diagnosis (M25.571) Pain in joint involving right ankle and foot (primary encounter diagnosis) Plan: XR ANKLE GENERAL 3V AP/LAT/OBL RT, XR FOOT GENERAL 3V AP/LAT/OBL RT Office Visit on 09/29/20 - XR ANKLE GENERAL 3V AP/LAT/OBL RT - XR FOOT GENERAL 3V AP/LAT/OBL RT PLAN Patient examined and evaluated Xray negative for fracture. Radiologist to review. Has spoken to patient many times in the past about cast immobilization for bone marrow edema in the 5th metatarsal(s). With new severe ankle pain and worsening 5th metatarsal(s) base pain, patient agreed to cast immobilization. Educated on cast care at home Follow up in 3 weeks. SIGNATURE: Abby Lamas DPM PATIENT NAME: Dorys Guevara DATE: September 29, 2020 TIME: 3:19 PM Abby Lamas DPM 09/29/2020 3:50 PM Signed Cast Care Use the following CAST CARE INSTRUCTIONS for proper care and use of your cast: DO keep the cast dry. Protect your cast while showering by using a plastic bag or Plastic Cast Sleeve around the cast. DO check the skin around the cast every day. Look for areas of redness and irritation. You can put lotion on the affected areas. You should return to the doctor if the irritation worsens. DO return to your doctor or go to the nearest Emergency Department if the cast gets wet and becomes soft or if it gets loose and starts to slip. DO NOT put pressure on any part of the cast until it is completely dry and fully hardened (24 hours). DO NOT try to scratch the skin under the cast by putting sharp, pointy objects down the cast. You can tap on the outside of the cast where your skin itches for some relief of the itchy feeling. DO NOT put weight on your cast or use the affected extremity until the follow-up doctor advises you to do so. Check capillary refill (circulation) in the nail beds by pressing on the nail bed and then releasing the nail bed. It should turn white when you press on it and then promptly return to pink in less than 2-3 seconds after you let go. Watch for swelling of the area beyond the cast. If the skin of the hand or fingers is exce (more content not included)... Normal [facility] No Panel Informationon 09-29 Radiology Study observation (narrative) [facility] XR ANKLE 3V AP/LAT/OBL RTon 09-29-2020 XR ANKLE 3V AP/LAT/OBL RT * * *Final Report* * * DATE OF EXAM: Theodore 27 2021 3:40PM JAC [id number] - XR ANKLE 3V AP/LAT/OBL RT / PROCEDURE REASON: Pain in joint involving right ankle and foot * * * * Physician Interpretation * * * * HISTORY: Acute anterior and lateral Right ankle pain, fell over baby gate last week. (accession [id number]), Acute Right dorsal midfoot pain fell of gate last week. (accession [id number]) Pain in joint involving right ankle and foot . TECHNIQUE: XR ANKLE 3V AP/LAT/OBL RT, XR FOOT 3V AP/LAT/OBL RT Laterality: RIGHT Number of different views (projections): 3 COMPARISON: 05/07/2020, 05/25/2020 RESULT: Ankle: No fracture. No dislocation. Well-corticated ossification at the dorsal aspect of the navicular bone consistent with sequela of prior trauma. Additionally, there is a well-corticated ossification posterior to the tibia, also likely sequela of prior trauma there is no soft tissue swelling. Foot: Well-corticated ossification tip of the fifth metatarsal base is unchanged. Subtle callus formation is seen at the base of the fifth metatarsal suggesting healing stress reaction.no additional focal periostitis. Posterior calcaneal spur noted IMPRESSION: Healing fifth metatarsal stress reaction. No new acute findings. Chief Radiologic Technologist: PSCB Transcribe Date/Time: Sep 29 2020 4:02P Dictated by : KEKE RICHARDS MD This examination was interpreted and the report reviewed and electronically signed by: KEKE RICHARDS MD on Sep 30 2020 7:35AM EST [id number] Normal [facility] XR FOOT 3V AP/LAT/OBL RTon 0 09-29-2020 XR FOOT 3V AP/LAT/OBL RT * * *Final Report* * * DATE OF EXAM: Sep 29 2020 3:40PM JAC [id number] - XR FOOT 3V AP/LAT/OBL RT / PROCEDURE REASON: Pain in joint involving right ankle and foot * * * * Physician Interpretation * * * * HISTORY: Acute anterior and lateral Right ankle pain, fell over baby gate last week. (accession [id number]), Acute Right dorsal midfoot pain fell of gate last week. (accession [id number]) Pain in joint involving right ankle and foot . TECHNIQUE: XR ANKLE 3V AP/LAT/OBL RT, XR FOOT 3V AP/LAT/OBL RT Laterality: RIGHT Number of different views (projections): 3 COMPARISON: 05/07/2020, 05/25/2020 RESULT: Ankle: No fracture. No dislocation. Well-corticated ossification at the dorsal aspect of the navicular bone consistent with sequela of prior trauma. Additionally, there is a well-corticated ossification posterior to the tibia, also likely sequela of prior trauma there is no soft tissue swelling. Foot: Well-corticated ossification tip of the fifth metatarsal base is unchanged. Subtle callus formation is seen at the base of the fifth metatarsal suggesting healing stress reaction.no additional focal periostitis. Posterior calcaneal spur noted IMPRESSION: Healing fifth metatarsal stress reaction. No new acute findings. Chief Radiologic Technologist: PSCB Transcribe Date/Time: Sep 29 2020 4:02P Dictated by : KEKE RICHARDS MD This examination was interpreted and the report reviewed and electronically signed by: KEKE RICHARDS MD on Sep 30 2020 7:35AM EST [id number] Normal [facility] CNOVon 08-13-2020 CNOV Office Visit (LOORRM ) DORYS GUEVARA ([id number]) 1955 F Date Time Provider Department 08/13/20 11:20 AM ABBY LAMAS During your visit today, we recorded the following information about you: Abby Lamas DPM 08/13/2020 1:16 PM Signed Department of Orthopedics [facility] Name: Dorys Guevara Date of Service: August 13, 2020 CC: Follow Up and Pain of the Right Foot Subjective: This 65 year old female patient presents to clinic for right foot pain. PAIN EVALUATION 08/13/2020 1139 Pain Level: 0 Pain can increase to 7/10 Pain Location: Foot-Right Description: Burning;Aching Duration Amount of Time: 2 Duration Units: Years Frequency: Intermittent Intervention: Medication;Relaxation Comments: Follow up for right foot pain. She is reqesting a boot. ROS: Cardiovascular: Negative leg swelling. Negative claudication. Neuro: Negative for numbness, tingling, burning sensations. Negative for frequent falls and balance incoordination Derm: Negative for open sores, slow healing sores. Negative rashes and itching. Musculoskeletal: Positive for foot pain. Positive localized swelling. Negative for back pain, and muscle pain I review past medical history and medications listed in epic with patient and indicates no change ALLERGIES No Known Allergies Objective: Pt presents ambulating in Sandals without antalgic gait pattern. General- AAO x 3, NAD, well groomed, pleasant and cooperative. Vasc: Right Pulses: DP: +2/4 , PT: +2/4 CFT is less than 3 seconds bilateral. Skin temperature is warm to cool proximal to distal bilateral. There is mild, 5th metatarsal(s) base right., edema. Neuro: Light touch intact to all quadrants of bilateral feet/ankles with no apparent sensory deficits Derm: Skin is of normal turgor and texture and without redness or bruising . Ortho: There is pain on palpation of the 5th metatarsal(s) base on the right. There is no pain with passive or resisted ROM x 4 directions on the right. MRI 05/25/2020 Result: BONE MARROW: Marrow edema of the left metatarsal base, proximal and mid shaft, with mild corresponding T1 hypointense signal along the dorsal aspect of the fifth metatarsal base, and intracortical thickening with edema-like signal, compatible with high-grade stress reaction. No discrete fracture line is visualized. Punctate ossification is seen along the proximal-plantar aspect of the fifth metatarsal base suggesting sequela of remote injury. No pathologic marrow replacing lesion is visualized. CARTILAGE: No discrete articular cartilage abnormality is seen. PLANTAR PLATES: The plantar plates are intact appearing. TENDONS: The flexor and extensor tendons of the midfoot/forefoot are intact. No evidence of tendinosis or tenosynovitis. JOINT FLUID: No joint effusion. INTERMETATARSAL SPACES: No visualized Angulo's neuroma. LIGAMENTS: Thickening and intermediate signal of the dorsal intermetatarsal ligament at the level the fourth and fifth metatarsal bases compatible with a subacute or remote sprain. Intact Lisfranc ligament. PLANTAR APONEUROSIS: The visualized plantar aponeurosis is within normal limits. MUSCLES: Normal muscle bulk and signal intensity. OTHER: Mild subcutaneous edema about the plantar and lateral aspects of the forefoot and fifth metatarsal base. No discrete encapsulated mass or fluid collection is identified about the area of interest involving the lateral forefoot/midfoot. Small cystlike collection along the lateral aspect of the first MTP joint measuring 7 x 4 x 4 mm suggestive of a ganglion cyst or intermetatarsal bursitis. Assessment: (R93.7) Bone marrow edema (primary encounter diagnosis) (M79.671) Pain in right foot Plan: Patient examined and evaluated Intervention: Tall Pneumatic Walking Boot with Even Up. Follow-up: Three weeks . Written and verbal health teaching given to patient, patient verbalizes understanding and agrees with treatment plan. Pt to call immediately if questions, concerns, pain arise prior to next appt. Electronically Signed: Abby Lamas DPM August 13, 2020 12:07 PM Referring Provider: SELF [200] Allergies As of Date: 08/13/2020 (No Known Allergies) Date Reviewed: 08/13/2020 Reviewed by: Abby Lamas DPM - Fully Assessed Reason for Visit: Follow Up [171] Pain [78] Primary Visit Diagnosis:Bone marrow edema [R93.7] Other Visit Diagnosis:Pain in right foot [M79.671] Prescriptions as of 08/13/2020 Sig: FAMOTIDINE 20 MG TABLET Take 20 mg by mouth once zhane* PREMARIN ORAL Take by mouth. FEXOFENADINE 180 MG TABLET Take 1 tablet by mouth once d* CLOBETASOL 0.05 % SCALP SOLUT* daily-bid prn rash on scalp, * Patient not taking: Reported on 05/07/2020 CLOBETASOL 0.05 % TOPICAL CRE* bid prn rash on body, do not * (more content not included)... Normal [facility] MRI FOOT/TOES WO IVCON RTon 05-25-2020 MRI FOOT/TOES WO IVCON RT * * *Final Report* * * DATE OF EXAM: May 25 2020 10:34AM LNM [id number] - MRI FOOT/TOES WO IVCON RT / PROCEDURE REASON: Mass of right foot * * * * Physician Interpretation * * * * MRI RIGHT FOOT WITHOUT CONTRAST History: Right foot mass, history of fall years ago. Pain along the fifth metatarsal (mostly base). Persistent pain at the metatarsal base. Comparison: Right foot radiographs 05/07/2020. Technique: Multiplanar, multisequence imaging of the right midfoot/forefoot extending from the mid calcaneus through the mid aspect first distal phalanx was performed without contrast. Result: BONE MARROW: Marrow edema of the left metatarsal base, proximal and mid shaft, with mild corresponding T1 hypointense signal along the dorsal aspect of the fifth metatarsal base, and intracortical thickening with edema-like signal, compatible with high-grade stress reaction. No discrete fracture line is visualized. Punctate ossification is seen along the proximal-plantar aspect of the fifth metatarsal base suggesting sequela of remote injury. No pathologic marrow replacing lesion is visualized. CARTILAGE: No discrete articular cartilage abnormality is seen. PLANTAR PLATES: The plantar plates are intact appearing. TENDONS: The flexor and extensor tendons of the midfoot/forefoot are intact. No evidence of tendinosis or tenosynovitis. JOINT FLUID: No joint effusion. INTERMETATARSAL SPACES: No visualized Angulo's neuroma. LIGAMENTS: Thickening and intermediate signal of the dorsal intermetatarsal ligament at the level the fourth and fifth metatarsal bases compatible with a subacute or remote sprain. Intact Lisfranc ligament. PLANTAR APONEUROSIS: The visualized plantar aponeurosis is within normal limits. MUSCLES: Normal muscle bulk and signal intensity. OTHER: Mild subcutaneous edema about the plantar and lateral aspects of the forefoot and fifth metatarsal base. No discrete encapsulated mass or fluid collection is identified about the area of interest involving the lateral forefoot/midfoot. Small cystlike collection along the lateral aspect of the first MTP joint measuring 7 x 4 x 4 mm suggestive of a ganglion cyst or intermetatarsal bursitis. LOCALIZER IMAGES: No other significant findings. IMPRESSION: Fifth metatarsal stress reaction and suggestion of adjacent subacute or remote dorsal intermetatarsal ligament sprain. Suggestion of subcentimeter ganglion cyst or trace intermetatarsal bursitis adjacent to the lateral aspect first MTP joint. Chief Radiologic Technologist: KB Transcribe Date/Time: May 25 2020 11:02A Dictated by : MATILDA DUMONT MD This examination was interpreted and the report reviewed and electronically signed by: MATILDA DUMONT MD on May 25 2020 11:29AM EST [id number] Normal [facility] Encounters Encounter Date Encounter Type Care Provider Facility Start: 11-10-2023 End: 11-10-2023 ambulatory FATOU H TIMMIS Not Available Start: 11-09-2023 End: 11-09-2023 ambulatory SHA DE LEON Not Available Start: 11-02-2023 End: 11-02-2023 ambulatory FATOU H TIMMIS Not Available Start: 10-25-2023 End: 10-25-2023 ambulatory FATOU H TIMMIS Not Available Start: 10-16-2023 End: 10-16-2023 ambulatory KAMILA MITCHELLAN Not Available Start: 09-26-2023 End: 09-26-2023 ambulatory KAMILA TROTTER Not Available Start: 08-25-2023 End: 08-25-2023 ambulatory MICHOACANO CAManuelaARIAN Not Available Start: 04-17-2023 Refill Ngoc waggoner [employer] Work Phone: [facility] Comment on above: Gastroesophageal ref lux disease without esophagitis Start: 02-16-2023 End: 02-16-2023 ambulatory KAMILA SHEARERHMAN Not Available Start: 09-29-2020 End: 09-29-2020 Subsequent hospital visit by physician Devyn Ellis Radiology Comment on above: Pain in joint involv ing right ankle and foot [M25.571] Procedures Date Procedure Procedure Detail Performing Clinician Start: 09-23-2022 Mammography Ngoc nguyen [employer] Work Phone: Start: 09-29-2020 Radex ankle complete minimum 3 views Abby POOLM Work Phone: Start: 12-30-2019 Colonoscopy Ngoc nguyen [employer] Work Phone: Plan of Treatment Date Care Activity Detail Author Start: 05-09-2031 RSV Vaccine (1 - 1-d ose 75+ series) RSV Vaccine (1 - 1-dose 75+ series) [facility] Start: 12-29-2029 Screening for malign ant neoplasm of colon [facility] Start: 11-05-2023 Covid-19 Vaccine ( season) Covid-19 Vaccine ( season) [facility] Start: 11-05-2023 Influenza vaccination Influenza Vacc ine (#1) [facility] Start: 09-24-2023 Screening for malign ant neoplasm of breast Mammogram [facility] Start: 03-06-2023 Advance Directive Discussion Advance Directive Discussion [facility] Start: 2021 Pneumococcal Vaccine : 65+ (2 of 2 - PCV) Pneumococcal Vaccine: 65+ (2 of 2 - PCV) [facility] Start: 2021 Screening for osteoporosis Bone Density Screening [facility] Start: 01-27-2021 Shingrix Vaccine (3 of 3) Shingrix V accine (3 of 3) [facility] Start: 12-05-2017 Diabetes Screening Diabetes Screenin g [facility] Start: 2001 Lipid panel Lipid Screening [facility] Start: 2001 Screening for malign ant neoplasm of colon [facility] Start: 1996 Screening for malign ant neoplasm of breast Mammogram Screening [facility] Start: 05-09-1975 Urine microalbumin profile DTaP,Tdap,Td Vaccine (1 - Tdap) [facility] Start: 1974 Anxiety Screening Anxiety Screening [facility] Start: 1974 Depression Screening Depression Scre ening [facility] Start: 1974 Hepatitis C screening Hepatitis C [facility] Start: 1956 Screening for malign ant neoplasm of colon [facility] Immunizations Immunization Date Immunization Notes Care Provider Diego coreas 12-01-2022 Influenza, High-dose Seasonal, Quadrivalent, Preservative Free Ngoc Avelar [employer] Work Phone: [facility] 12-01-2022 SARS-CoV-2, Unspecified Patr naomy Avelar [employer] Work Phone: [facility] 12-01-2022 zoster vaccine recombinant Ngoc Avelar [employer] Work Phone: [facility] 11-18-2021 influenza, high dose seasonal, preservative-free Ngoc Avelar [employer] Work Phone: [facility] 11-18-2021 Influenza, High-dose Seasonal, Quadrivalent, Preservative Free Ngoc [place] [employer] Work Phone: [facility] 11-18-2021 Moderna Bivalent Esposito ster Vaccination Ngoc Landonrae [employer] Work Phone: [facility] 11-18-2021 Pfizer Purple Cap SARS-CoV-2 Vaccination Ngoc Rosio [employer] Work Phone: [facility] 06-14-2021 Pneumococcal Conjuga te PCV 20 Ngoc Landonrae [employer] Work Phone: [facility] 06-14-2021 zoster vaccine recombinant Ngoc Harae [employer] Work Phone: [facility] 12-02-2020 influenza, injectabl e, quadrivalent, preservative free Ngoc Hackenburg [employer] Work Phone: [facility] 12-02-2020 zoster vaccine recombinant Ngoc Harae [employer] Work Phone: [facility] 12-02-2020 influenza virus vacc ine, unspecified formulation [facility] 12-06-2019 influenza, injectabl e, quadrivalent, preservative free Ngoc Hackenburg [employer] Work Phone: [facility] 12-12-2018 influenza, injectabl e, quadrivalent, preservative free Ngoc Hackenburg [employer] Work Phone: [facility] 12-21-2017 influenza, injectabl e, quadrivalent, preservative free Ngoc Hackenburg [employer] Work Phone: [facility] 01-17-2017 Influenza, injectabl e, Madin Raquel Canine Kidney, preservative free, quadrivalent Ngoc Hackenburg [employer] Work Phone: [facility] 12-21-2015 hepatitis A vaccine, adult dosage Ngoc Hawaltenrobetr [employer] Work Phone: [facility] 12-21-2015 typhoid capsular polysaccharide vaccine Ngoc Rosio [employer] Work Phone: [facility] 12-11-2015 influenza, injectabl e, quadrivalent, preservative free Ngoc Hackenburg [employer] Work Phone: [facility] 01-09-2015 influenza virus vacc ine, whole virus Ngoc Hackenburg [employer] Work Phone: [facility] 01-03-2014 influenza, seasonal, injectable, preservative free Ngoc Hackenburg [employer] Work Phone: [facility] 12-12-2012 influenza, seasonal, injectable, preservative free Ngoc Hackenburg [employer] Work Phone: [facility] 06-21-2012 zoster vaccine, live Patrici a [place] [employer] Work Phone: [facility] 02-20-2012 influenza, seasonal, injectable Ngoc Hackenburg [employer] Work Phone: [facility] 01-06-2011 influenza virus vacc ine, whole virus Ngoc Hackenburg [employer] Work Phone: [facility] 01-06-2011 pneumococcal polysaccharide vaccine, 23 valent Ngoc Hackenburg [employer] Work Phone: [facility] Payers Date Payer Category Payer Private Health Insurance [employer] [id number] 2023-Present [address] [address] [place] [address] Supplement [id number] 2023 Private Health Insurance [id number] 2022 Unknown [id number] 2021 Medicare MEDICARE MEDICAR E PART B [id number] 2021-Present [place] [address] Medicare [id number] 2021 Medicare [id number] 2021 Private Health Insurance [facility] [id number] 2020 Unknown [id number] 1955 Unknown [id number] .[id number] 1955 Unknown [id number] 1955 Unknown [id number] 1955 Unknown [id number] 1955 Unknown [id number] .2.9 1955 Unknown [id number] .[id number] 1955 Unknown [id number] .[id number] 1955 Unknown [id number] .[id number] 1955 Unknown [id number] .[id number] 1955 Unknown [id number] Social History Date Type Detail Facility Start: 05-07-2020 End: 02-16-2023 Tobacco smoking status [facility] Ex-smoker [facility] are History of tobacco use Current smoker [facility] Start: 05-07-2020 End: 02-16-2023 Tobacco use and exposure Smokeless tobacco non-user [facility] Start: 03-24-2023 Alcohol intake Lifetime non-d dante (finding) [facility] Start: 05-07-2020 End: 09-12-2022 [facility] Start: 05-07-2020 End: 09-12-2022 Humiliation, Afraid, Rape, and Kick questionnaire [HARK] [facility] Within the last year , have you been afraid of your partner or ex-partner? No [facility] How often do you att end protestant or scientology services? Patient refused [facility] Are you now , , , , never or living with a partner? [facility] How often to you hav e a drink containing alcohol? 2-3 time sa week [facility] How many standard dr inks containing alcohol do you have on a typical day? 1 or 2 [facility] How often do you hav e 6 or more drinks on 1 occasion? Never [facility] Do you feel stress - tense, restless, nervous, or anxious, or unable to sleep at night because your mind is troubled all the time - these days [OSQ] Not at all [facility] (I/We) worried whevincent er (my/our) food would run out before (I/we) got money to buy more. Never true [facility] Start: 12-29-2022 Alcohol Comment cafffeine inta ke: 1-2 cups/day [facility] Start: 1955 Sex Assigned At Female [facility] Start: 09-12-2022 Gender identity Identifies as female gender (finding) [facility] Start: 05-07-2020 Alcoholic beverage intake Curr ent drinker of alcohol (finding) [facility] Start: 1955 Sex assigned at Not on file [facility] Start: 08-30-2020 End: 09-29-2020 Exposure to SARS-CoV-2 (event) Not sure [facility] Clinical Notes 05-25-2020 to 11-19-2021 Note Date & Type Note Facility 11-19-2021 Note HISTORY: Dizzy spell s x 1 month PROCEDURE: Without IV contrast, images of the brain were performed. FINDINGS: No worrisome intra- or extra-axial mass lesions, mass effect or hemorrhage are identified. No evidence of major vessel ischemia is noted. Ventricular size is normal for this age, and commensurate with the cerebral sulci. Calvarium, mastoid air cells, paranasal sinuses and orbital contents are unremarkable. IMPRESSION: Normal non-contrast brain CT Report reported and signed by Pillo Hanna on 11/19/[id number] [facility] Machine Stuffer Automatic 04-26-2021 Note HNO ID: [id number] Author: Viral Good MD Service: ? Author Type: Physician Type: Progress Notes Filed: 04/26/2021 1:38 PM Note Text: LV 2014 CC: rash HPI: 65 year old F with h/o pruritic rash in 2014, and prior to that in 2008. Started a t the time on zyrtec and zantac with good results. Zantac then was discontinued and patient eventually ran out of pills. Her pruritus recurred despite still taking Ashanti. Involving posterior scalp, posterior neck and also had a rash on L breast that has cleared up. Pruritus of scalp remains. Flare 4 months ago. Tried famotidine PO given by PCP which actually made pruritus worse. PAST MEDICAL HISTORY Diagnosis Date - GERD (gastroesophageal reflux disease) - Rash ROS: No fatigue or weight loss. No SOB, chest pain, abdominal pain. PE: AAANDO x 3, well appearing. The examination of the scalp, face, eyelids, lips, neck, chest, abdomen, digits and nails, both upper extremities was done and was normal except as listed below: - occipital scalp with small pink patches and macules, no papules. - negative dermatographism. Assessment/Plan: Dorys was seen today for derm problem. Diagnoses and all orders for this visit: Pruritus of skin - cont with Ashanti as is - start cetirizine (ZYRTEC) 10 mg tablet; Take 1 tablet by mouth once daily. - Clobetasol Propionate (TEMOVATE) 0.05 % external solution; apply to itchy scalp areas every other day as needed in reserve famotidine along with protonix, latter currently taking. return to clinic as needed, call me in 2 weeks if not better I spent a total of 20 minutes on the date of the service which included preparing to see the patient, [id number] patient care, completing clinical documentation, obtaining and/or reviewing separately obtained history, performing a medically appropriate examination, counseling and educating the patient/family/caregiver and ordering medications, tests, or procedures. Viral Stinson MD [facility] 03-12-2021 Note FINDINGS: Sonographic evaluation of the left breast demonstrates no worrisome cystic or solid mass lesions. Reference is made to the mammogram to the same day left breast mammogram and recent bilateral mammogram March 10, 2021 IMPRESSION: BIRADS 3 - PROBABLY BENIGN FINDING - SHORT INTERVAL FOLLOW-UP SUGGESTED. Recommend follow up left breast mammography in 6 months. Report reported and signed by Pillo Hanna on 03/12/[address] [facility] Machine Stuffer Automatic 11-12-2020 Note HNO ID: [id number] Author: Abby Lamas DPM Service: ? Author Type: Physician Type: Progress Notes Filed: 11/12/2020 9:21 PM Note Text: Department of Orthopedics [facility] Name: Dorys Guevara Date of Service: November 12, 2020 CC: Follow Up and Pain of the Right Foot Subjective: This 65 year old female patient presents to clinic for follow up right foot pain secondary to bone marrow edema. Patient has been in pneumatic walking boot and states she has notice great decreased pain. PAIN EVALUATION 11/12/2020 1027 Pain Level: 0 Pain Location: Foot-Right Duration Amount of Time: 6 Duration Units: Months Frequency: Intermittent Intervention/Comfort measure: Medication;Relaxation cast, boot Comments: Follow up right foot pain/bone edema ROS: Cardiovascular: Negative leg swelling. Negative claudication. Neuro: Negative for numbness, tingling, burning sensations. Negative for frequent falls and balance incoordination Derm: Negative for open sores, slow healing sores. Negative rashes and itching. Musculoskeletal: See HPI I review past medical history and medications listed in epic with patient and indicates no change ALLERGIES No Known Allergies Objective: Pt presents ambulating in Pneumatic Walking Boot General- AAO x 3, NAD, well groomed, pleasant and cooperative. Vasc: Right Pulses: DP: +2/4 , PT: +2/4 CFT is less than 3 seconds bilateral. Skin temperature is warm to cool proximal to distal bilateral. There is decreased 5th metatarsal(s) base edema. Neuro: Light touch intact to all quadrants of bilateral feet/ankles with no apparent sensory deficits Derm: Skin is of normal turgor and texture and without redness or bruising . Ortho: There minimal pain on palpation of the base of 5th metatarsal(s) right foot. There is no pain with passive or resisted ROM x 4 directions right foot. Decreased ankle joint dorsiflexion bilateral. With weightbearing noted cavus foot with varus heel (weightbearing 5th metatarsal(s)) Assessment: (R93.7) Bone marrow edema (primary encounter diagnosis) (M79.671) Pain in right foot (Q66.70) Pes cavus (M21.6X1, M21.6X2) Equinus deformity of both feet Plan: Patient examined and evaluated Intervention: Continue conservative treatment. Can try surgical shoe while on vacation in [place] Rx for custom orthotics from [facility] Follow-up: PRN/4-6 weeks . Written and verbal health teaching given to patient, patient verbalizes understanding and agrees with treatment plan. Pt to call immediately if questions, concerns, pain arise prior to next appt. Electronically Signed: Abby Lamas DPM November 12, 2020 10:42 AM [facility] 09-29-2020 Note HNO ID: [id number] Author: Amanda Pelayo Ma Service: ? Author Type: ? Type: Progress Notes Filed: 09/30/2020 9:19 PM Note Text: A Short Leg Weightbearing Cast was applied to the right leg. Instructions on cast care were given. A medium Cast shoe was dispensed. Patient will follow up as scheduled/prn. [facility] 09-29-2020 Note HNO ID: [id number] Author: Skylar Polanco Service: ? Author Type: Diabetes Trainer Type: Progress Notes Filed: 09/29/2020 3:37 PM Note Text: Radiology Service Progress Note PATIENT NAME: Dorys Guevara DATE OF SERVICE: September 29, 2020 TIME: 3:25 PM PATIENT IDENTITY VERIFICATION COMPLETED USING TWO (2) IDENTIFIERS: Name and Date of confirmed by patient verbally. FALL SCREENING: Has the patient had 2 falls in the last year or 1 fall with injury or currently using an Ambulatory Assistive Device (Walker, Cane, Wheelchair, Crutches, etc.)? Yes, Patient High Risk for Falls What interventions were put in place to prevent falls during this visit? [place] Falls Risk Wristband Applied, Instructed Patient to Call for Help if Needed and Increased Observations by Caregivers PATIENT GENDER DATA: Female. status: : No status: NO. PATIENT RELEVANT IMPLANT DATA REVIEWED: Not Applicable RADIOLOGY DEPARTMENT: General X-ray: Exam(s) Completed: Lower Extremity X-Ray(s): Ankle, Right and Wt. Bearing and Foot, Right and Wt. Bearing PERIPHERAL IV DATA: Not applicable SIGNED BY: Skylar Polanco September 29, 2020 3:25 PM [facility] 09-29-2020 Note HNO ID: [id number] Author: Abby Lamas DPM Service: ? Author Type: Physician Type: Progress Notes Filed: 09/30/2020 9:19 PM Note Text: SERVICE DATE: September 29, 2020 PCP: Kamila Trotter MD Patient was self-referred. Subjective Patient ID: Dorys is a 65 year old female. Chief Complaint: Patient presents with: Right Foot - Follow Up, Pain, New PAIN EVALUATION 09/29/2020 1513 Pain Level: 8 Pain Location: Foot-Right Description: Aching Duration Amount of Time: 4 Duration Units: Days Frequency: Continuous Intervention/Comfort measure: Relaxation;Cold;Medication Comments: She is following up for bone marrow edema of right foot. On Monday she fell of the doggie gate and now has pain in the right foot and ankle. HPI TREATMENTS PRIOR TO INITIAL CONSULT: Oral NSAIDS Right Bracing: Wears pneumatic walkign boot intermittently. Currently elastic ankle brace Review of Systems Cardiovascular: Negative. Endocrine: Negative for diabetic associated symptoms. Skin: Positive for color change. bruising Neurological: Negative for numbness. Hematological: Negative for blood/clotting disorder. Musculoskeletal: Positive for joint swelling. There is no problem list on file for this patient. PAST MEDICAL HISTORY Diagnosis Date - GERD (gastroesophageal reflux disease) - Rash No past surgical history on file. No family history on file. Social History Tobacco Use - Smoking status: Former Smoker - Smokeless tobacco: Never Used Substance Use Topics - Alcohol use: Yes - Drug use: Not on file ALLERGIES No Known Allergies MEDICATIONS: famotidine (PEPCID AC MAXIMUM STRENGTH) 20 mg tablet Take 20 mg by mouth once daily. ESTROGENS, CONJUGATED (PREMARIN ORAL) Take by mouth. fexofenadine (ASHANTI) 180 mg tablet Take 1 tablet by mouth once daily. Clobetasol Propionate 0.05 % TOPICAL external solution daily-bid prn rash on scalp, do not apply to face or folds, max Mon-Fri; dispense largest clobetasol 0.05 % TOPICAL cream bid prn rash on body, do not apply to face or folds, max Mon-Fri; dispense largest Allergies, medications, past surgical history, family history and past medical history were reviewed per this encounter. Objective Right Ankle Exam Swelling: mild Range of Motion Dorsiflexion: abnormal Inversion: abnormal Tests Anterior drawer: negative Other Sensation: normal Pulse: present Comments: Pain at AITFL and 5th metatarsal(s) base on the right which is also swollen. No pain at ATFL, bifurcate or lateral malleolus. Range of motion is limited by pain. Assessment/Plan ASSESSMENT Diagnosis (M25.571) Pain in joint involving right ankle and foot (primary encounter diagnosis) Plan: XR ANKLE GENERAL 3V AP/LAT/OBL RT, XR FOOT GENERAL 3V AP/LAT/OBL RT Office Visit on 09/29/20 - XR ANKLE GENERAL 3V AP/LAT/OBL RT - XR FOOT GENERAL 3V AP/LAT/OBL RT PLAN Patient examined and evaluated Xray negative for fracture. Radiologist to review. Has spoken to patient many times in the past about cast immobilization for bone marrow edema in the 5th metatarsal(s). With new severe ankle pain and worsening 5th metatarsal(s) base pain, patient agreed to cast immobilization. Educated on cast care at home Follow up in 3 weeks. SIGNATURE: Abby Lamas DPM PATIENT NAME: Dorys Guevara DATE: September 29, 2020 TIME: 3:19 PM [facility] 08-13-2020 Note HNO ID: [id number] Author: Abby Lamas DPM Service: ? Author Type: Physician Type: Progress Notes Filed: 08/13/2020 1:16 PM Note Text: Department of Orthopedics [facility] Name: Dorys Guevara Date of Service: August 13, 2020 CC: Follow Up and Pain of the Right Foot Subjective: This 65 year old female patient presents to clinic for right foot pain. PAIN EVALUATION 08/13/2020 1139 Pain Level: 0 Pain can increase to 7/10 Pain Location: Foot-Right Description: Burning;Aching Duration Amount of Time: 2 Duration Units: Years Frequency: Intermittent Intervention: Medication;Relaxation Comments: Follow up for right foot pain. She is reqesting a boot. ROS: Cardiovascular: Negative leg swelling. Negative claudication. Neuro: Negative for numbness, tingling, burning sensations. Negative for frequent falls and balance incoordination Derm: Negative for open sores, slow healing sores. Negative rashes and itching. Musculoskeletal: Positive for foot pain. Positive localized swelling. Negative for back pain, and muscle pain I review past medical history and medications listed in epic with patient and indicates no change ALLERGIES No Known Allergies Objective: Pt presents ambulating in Sandals without antalgic gait pattern. General- AAO x 3, NAD, well groomed, pleasant and cooperative. Vasc: Right Pulses: DP: +2/4 , PT: +2/4 CFT is less than 3 seconds bilateral. Skin temperature is warm to cool proximal to distal bilateral. There is mild, 5th metatarsal(s) base right., edema. Neuro: Light touch intact to all quadrants of bilateral feet/ankles with no apparent sensory deficits Derm: Skin is of normal turgor and texture and without redness or bruising . Ortho: There is pain on palpation of the 5th metatarsal(s) base on the right. There is no pain with passive or resisted ROM x 4 directions on the right. MRI 05/25/2020 Result: BONE MARROW: Marrow edema of the left metatarsal base, proximal and mid shaft, with mild corresponding T1 hypointense signal along the dorsal aspect of the fifth metatarsal base, and intracortical thickening with edema-like signal, compatible with high-grade stress reaction. No discrete fracture line is visualized. Punctate ossification is seen along the proximal-plantar aspect of the fifth metatarsal base suggesting sequela of remote injury. No pathologic marrow replacing lesion is visualized. CARTILAGE: No discrete articular cartilage abnormality is seen. PLANTAR PLATES: The plantar plates are intact appearing. TENDONS: The flexor and extensor tendons of the midfoot/forefoot are intact. No evidence of tendinosis or tenosynovitis. JOINT FLUID: No joint effusion. INTERMETATARSAL SPACES: No visualized Angulo's neuroma. LIGAMENTS: Thickening and intermediate signal of the dorsal intermetatarsal ligament at the level the fourth and fifth metatarsal bases compatible with a subacute or remote sprain. Intact Lisfranc ligament. PLANTAR APONEUROSIS: The visualized plantar aponeurosis is within normal limits. MUSCLES: Normal muscle bulk and signal intensity. OTHER: Mild subcutaneous edema about the plantar and lateral aspects of the forefoot and fifth metatarsal base. No discrete encapsulated mass or fluid collection is identified about the area of interest involving the lateral forefoot/midfoot. Small cystlike collection along the lateral aspect of the first MTP joint measuring 7 x 4 x 4 mm suggestive of a ganglion cyst or intermetatarsal bursitis. Assessment: (R93.7) Bone marrow edema (primary encounter diagnosis) (M79.671) Pain in right foot Plan: Patient examined and evaluated Intervention: Tall Pneumatic Walking Boot with Even Up. Follow-up: Three weeks . Written and verbal health teaching given to patient, patient verbalizes understanding and agrees with treatment plan. Pt to call immediately if questions, concerns, pain arise prior to next appt. Electronically Signed: Abby Lamas DPM August 13, 2020 12:07 PM [facility] 05-25-2020 Note HNO ID: [id number] Author: Skylar Lyons (Tech) Service: Radiology Author Type: Diabetes Trainer Type: Progress Notes Filed: 05/25/2020 10:29 AM Note Text: Radiology Service Progress Note PATIENT NAME: Dorys Guevara DATE OF SERVICE: May 25, 2020 TIME: 9:51 AM PATIENT IDENTITY VERIFICATION COMPLETED USING TWO (2) IDENTIFIERS: Name and Date of confirmed by patient verbally. FALL SCREENING: Has the patient had 2 falls in the last year or 1 fall with injury or currently using an Ambulatory Assistive Device (Walker, Cane, Wheelchair, Crutches, etc.)? No PATIENT GENDER DATA: Female. status: : No status: NO. PATIENT RELEVANT IMPLANT DATA REVIEWED: Yes RADIOLOGY DEPARTMENT: MR; Exam(s) Completed: Lower MSK: Forefoot/Midfoot, right PERIPHERAL IV DATA: Not applicable SIGNED BY: Skylar Lyons May 25, 2020 9:51 AM [facility] Evaluation note Diagnosis Gastroesophageal reflux disease without esophagitis Esophageal reflux documented in this encounter [facility] Diagnosis Pain in joint involving right ankle and foot documented in this encounter [facility] Summary Purpose Family History No Family History Records FoundNo Family History Records FoundNo Family History Records FoundNo Family History Records Found Advance Directives No Advanced Directives Records FoundNo Advanced Directives Records FoundNo Advanced Directives Records FoundNo Advanced Directives Records Found Additional Source Comments INFORMATION SOURCE (unrecogn ized section and content) DATE CREATED AUTHOR 10/04/2020 [facility] DATE CREATED AUTHOR AUTHOR'S ORGANIZ ATION 05/23/2021 [facility] DATE CREATED AUTHOR AUTHOR'S ORGANIZ ATION 12/04/2021 [facility] dical Specialist DATE CREATED AUTHOR AUTHOR'S ORGANIZ ATION 11/11/2023 [facility] d[facility] Specialists EPIC Reason for Visit (unrecogniz ed section and content) Reason Comments Med Refill Care Teams (unrecognized sec tion and content) Textile Conversion Manager Relationship Specialty Start Date End Date Kamila Trotter MD [address] [facility] [place] [address] PCP - General Family Medicine 09/09/22 Textile Conversion Manager Relationship Specialty Start Date End Date Kamila Trotter [address] [facility] [place] [address] PCP - General Family Medicine 11/19/14 Source Comments (unrecognize d section and content) In the event this informatio n is protected by the Federal Confidentiality of Alcohol and Drug Abuse Patient Records regulations: The Federal rules restrict any use of the information to criminally investigate or prosecute any alcohol or drug abuse patient.[facility] FOR RECORDS PERTAINING TO PATIENTS WHO ARE OR HAVE BEEN ENROLLED IN A CHEMICAL DEPENDENCY/SUBSTANCEABUSE PROGRAM, SOME INFORMATION MAY BE OMITTED. This clinical summary was aggregated from multiple sources. Caution should be exercised in using it in the provision of clinical care. This summary normalizes information from multiple sources, and as a consequence, information in this document may materially change the coding, format and clinical context of patient data. In addition, data may be omitted in some cases. CLINICAL DECISIONS SHOULD BE BASED ON THE PRIMARY CLINICAL RECORDS. [facility]. provides no warranty or guarantee of the accuracy or completeness of information in this document.
[2023-12-17] MEDS: PREDNISONE 20 MG TABLET 40 MG PO (12:54)
[2023-12-17] MEDS: FAMOTIDINE 20 MG TABLET PO (12:54)
--- NOTE | 2023-12-17 13:05 | ED.EXTPRO1 ---
HPI - Extremity Problem General Chief complaint: Extremity Problem, Nontraumatic Stated complaint: BEE STING, SKIN, ALLERGIC REACTION, LEFT ARM Time Seen by Provider: 12/17/23 12:35 Source: patient Mode of arrival: walk-in Limitations: no limitations History of Present Illness HPI Narrative: The patient is coming to us after she had a bee sting almost 3 days ago, patient mentioned that this started Monday and she is presented to us on the Monday after she started having some more swelling in the area where she had the bee sting, the patient denies any fever or chills but she has been having a lot of itching in the area that she had the sting She did try some Benadryl yesterday because she was itching it did help but the patient still have some swelling No difficulty breathing no tongue swelling The patient had a localized reaction before for a similar bee sting in her leg Related Data Previous Rx's ?Medication ?Instructions ?Recorded amoxicillin 875 mg-potassium 1 tab PO BID #10 tabs 12/17/23 clavulanate 125 mg tablet diphenhydramine HCl 25 mg capsule 25 mg PO TID PRN allergic reaction 12/17/23 (Benadryl) #14 caps famotidine 20 mg tablet (Pepcid) 20 mg PO BID #10 tabs 12/17/23 fluconazole 150 mg tablet 150 mg PO DAILY #1 tab 12/17/23 prednisone 20 mg tablet 40 mg (2 x 20 mg) PO DAILY 5 days 12/17/23 #10 tabs Allergies Allergy/AdvReac Type Severity Reaction Status Date / Time omeprazole (From Prilosec) Allergy Mild nausea Verified 07/27/23 16:26 iv constrast Allergy Severe Anaphylaxis Uncoded 07/27/23 16:26 Review of Systems ROS Status of ROS 10 or more systems reviewed and unremarkable except as noted in history and below PFSH PFSH Social History Little interest or pleasure in doing things: not at all Feeling down, depressed, or hopeless: not at all Exam Narrative Exam Narrative: Nurses notes and vital signs reviewed and patient is not hypoxic. Left upper extremity: The patient have a bee sting in the proximal aspect of the left forearm there is some bullae of fluid in the area but there is no stinger or any obvious entrance wound, the patient does have swelling that is significant in the forearm toward the dorsum of the left hand but the patient have no vascular injury there is some warmth No significant redness General: Well-appearing and in no apparent distress. Skin: Warm, dry, no pallor noted. No rash. Head: Normocephalic, atraumatic. Neck: Supple, non-tender. Eye: Pupils are equal, round and EOMI. No scleral icterus. Ears, Nose, Mouth, and Throat: TM are clear, no nasal mucosal hypertrophy. Oral mucosa is moist, no posterior oropharynx erythema, uvula is mid-line Cardiovascular: Regular Rate and Rhythm without murmur, gallop or rub. Respiratory: No accessory muscle use or respiratory distress. Lungs are clear to auscultation, no wheezing, rales or rhonchi Chest Wall: no tenderness Back: No midline thoracic or lumbar vertebral tenderness. No CVA tenderness Musculoskeletal: normal ROM, no calf or popliteal tenderness, no lower extremity edema/swelling GI: Abdomen is soft, non-distended. Normal bowel sounds. No masses appreciated. No tenderness to palpation. No rebound, guarding, or rigidity noted. Neurological: A&O x4. No cranial nerve dysfunction observed. No truncal ataxia. Moves all extremities. Sensation intact. Psychiatric: Cooperative and interactive. Normal mood and affect. Constitutional Vital Signs, click to edit/add: Last Vital Signs Temp 97.7 F 12/17/23 12:29 Pulse 63 12/17/23 12:29 Resp 18 12/17/23 12:29 BP 117/72 12/17/23 12:29 Pulse Ox 98 12/17/23 12:29 O2 Del Method Room Air 12/17/23 12:29 Course Vital Signs Vital signs: Vital Signs Temperature 97.7 F 12/17/23 12:29 Pulse Rate 63 12/17/23 12:29 Respiratory Rate 18 12/17/23 12:29 Blood Pressure 117/72 12/17/23 12:29 Pulse Oximetry 98 12/17/23 12:29 Oxygen Delivery Method Room Air 12/17/23 12:29 Temperature 97.7 F 12/17/23 12:29 Pulse Rate 63 12/17/23 12:29 Respiratory Rate 18 12/17/23 12:29 Blood Pressure 117/72 12/17/23 12:29 Pulse Oximetry 98 12/17/23 12:29 Oxygen Delivery Method Room Air 12/17/23 12:29 MDM - Extremity (Nontraumatic) MDM Narrative Medical decision making narrative: The patient presented to us with a localized allergic reaction although I cannot rule out underlying small cellulitis she does not have any systemic symptoms otherwise The patient was started on prednisone as well as Pepcid with Benadryl to be restarted and she have to stop her Ashanti while she is using Benadryl The patient also was covered with Augmentin she was provided with fluconazole 1 pill as she mentioned that she usually gets yeast infection after antibiotic The patient is to follow up with primary care physician in next 2-3 days or to return to the emergency department should any of the signs or symptoms worsen or new symptoms develop. The patient agrees with the following Diagnosis and Treatment plan and the patient will be discharged home. Discharge Plan Discharge Chief Complaint: Extremity Problem, Nontraumatic Clinical Impression: Bee sting allergy, Cellulitis Patient Disposition: Home, Self-Care Time of Disposition Decision: 13:02 Condition: Good Mode of Transportation: Private Vehicle Prescriptions / Home Meds: New fluconazole 150 mg tablet 150 mg PO DAILY Qty: 1 0RF amoxicillin-pot clavulanate 875-125 mg tablet 1 tab PO BID Qty: 10 0RF diphenhydramine HCl [Benadryl] 25 mg capsule 25 mg PO TID PRN (Reason: allergic reaction) Qty: 14 0RF prednisone 20 mg tablet 40 mg PO DAILY 5 Days Qty: 10 0RF famotidine [Pepcid] 20 mg tablet 20 mg PO BID Qty: 10 0RF Print Language: Micronesian Instructions: Cellulitis (ED), Allergies (ED) Referrals: DEMARCUS TROTTER [Primary Care Provider] - 1 week Discharge Date/Time: 12/17/23 13:17
== END 2023-12-17 13:17 | disposition home or self-care (01) ==
PROVIDERS: Emergency Provider Emergency Medicine; PCP Family Medicine
DX: T63.441A Toxic effect of venom of bees, accidental (unintentional), initial encounter (principal); L03.114 Cellulitis of left upper limb
CPT/HCPCS: 99283; J7512